=== PATIENT | female | born 1965 | race Caucasian/White ===

== ENCOUNTER 2016-09-19 21:13 | Emergency (ER) | payer OTHER ==
[~2016-09-19] VITALS: Ht 165.1 cm; Wt 94.9 kg
[~2016-09-19 21:13] MED LIST: ALBUAER19 INH; APRE1TAB3 PO; ASPEC81 PO; FLVHFA110 INH; PRAV10TA39 PO; RIZA10TA19 PO; TOPI50TA16 PO
[2016-09-19 21:20] VITALS: TEMP 36.9; Ht 165.1 cm; Wt 94.9 kg
[2016-09-19] MEDS ORDERED: METOCLOPRAMIDE HCL INJ 5 MG/ML 2 ML VIAL IV STA (21:33)
[2016-09-19] MEDS ORDERED: DiphenhydrAMINE HCL 50 MG/ML VIAL IV STA (21:33)
[2016-09-19] MEDS ORDERED: TPM/50 PO (21:36)
[2016-09-19] MEDS ORDERED: RIZA1TAB11 PO (21:36)
[2016-09-19] MEDS ORDERED: DEXAMETHASONE SOD INJ 10 MG/ML VIAL IV ONE (21:45)
[2016-09-19 22:18] LABS: BASO % 0.4 %; BASO ABS # 0.05 K/uL (0-0.2); COMPLETE YES; EOS % 1.6 %; IG% 0.3 %; LYMPH % 22.7 %; MEAN CELL VOLUME 93.5 fL (80-100); MEAN CORPUSCULAR HEMOGLOBIN 32.2 pg (25-34); MEAN CORPUSCULAR HGB CONC 34.5 g/dl (32-36); MEAN PLATELET VOLUME 9.7 fL (7.4-10.4); MONO % 3.9 %; NEUT % 71.1 %; PLATELET COUNT 258 K/uL (130-400); RED BLOOD COUNT 4.28 M/uL (4.2-5.4); WHITE BLOOD COUNT 12.77 K/uL (4.8-10.8)
[2016-09-19 22:41] LABS: BUN/CREATININE RATIO 12.7 (10-20); CALCIUM 9.5 mg/dl (8.5-10.1); CREATININE 1.1 mg/dl (0.60-1.20); POTASSIUM 3.3 mmol/L (3.5-5.1)
[2016-09-19] MEDS ORDERED: SODIUM CHLORIDE 0.9% 500ML 500 ML IV STA (22:43)
[2016-09-19] MEDS ORDERED: POTASSIUM CHLORIDE 10 MEQ TABCR PO STA (22:44)
[2016-09-19] MEDS ORDERED: OPTIRAY 320 IV PRN (22:45)
--- NOTE | 2016-09-19 23:54 | EMERGENCY ROOM VISIT NOTE ---
ED Visit Note First contact with patient: 21:27 Patient seen along with the physician assistant facility manager Sandra Alan. Patient currently feels much better after treatment for migraine, she is nonfocal neurologically, her abdominal exam is within normal limits; agree with workup and assessment Problem List Medical Problems: (1) CKD (chronic kidney disease) stage 3, GFR 30-59 ml/min Status: Chronic (2) COPD (chronic obstructive pulmonary disease) Status: Chronic (3) Enteritis Status: Resolved (4) GERD (gastroesophageal reflux disease) Status: Chronic (5) HTN (hypertension) Status: Chronic (6) Hyperlipemia Status: Chronic (7) Psoriasis Status: Chronic (8) Pulmonary nodule Status: Resolved Surgical Problems: (1) History of repair of right rotator cuff Status: Resolved Current/Historical Medications Scheduled Apremilast (Otezla), 30 MG PO BID Topiramate (Topamax), 50 MG PO BID Scheduled PRN Rizatriptan Benzoate (Rizatriptan Benzoate), 10 MG PO UD PRN for Migraine Allergies Coded Allergies: Codeine (Verified Adverse Reaction, Unknown, vomiting, 03/05/16) Vital Signs Date Time Temp Pulse Resp B/P Pulse Ox O2 Delivery O2 Flow Rate FiO2 09/19/16 23:25 83 18 110/84 93 Room Air 09/19/16 21:20 36.9 80 18 116/76 96 Room Air Laboratory Results 09/19/16 21:55 Red Blood Count 4.28, Mean Corpuscular Volume 93.5, Mean Corpuscular Hemoglobin 32.2, Mean Corpuscular Hemoglobin Concent 34.5, Mean Platelet Volume 9.7, Neutrophils (%) (Auto) 71.1, Lymphocytes (%) (Auto) 22.7, Monocytes (%) (Auto) 3.9, Eosinophils (%) (Auto) 1.6, Basophils (%) (Auto) 0.4, Neutrophils # (Auto) 9.08, Lymphocytes # (Auto) 2.90, Monocytes # (Auto) 0.50, Eosinophils # (Auto) 0.20, Basophils # (Auto) 0.05 09/19/16 21:55 Test 09/19/16 21:55 White Blood Count 12.77 K/uL (4.8-10.8) Red Blood Count 4.28 M/uL (4.2-5.4) Hemoglobin 13.8 g/dL (12.0-16.0) Hematocrit 40.0 % (37-47) Mean Corpuscular Volume 93.5 fL (80-100) Mean Corpuscular Hemoglobin 32.2 pg (25-34) Mean Corpuscular Hemoglobin Concent 34.5 g/dl (32-36) Platelet Count 258 K/uL (130-400) Mean Platelet Volume 9.7 fL (7.4-10.4) Neutrophils (%) (Auto) 71.1 % Lymphocytes (%) (Auto) 22.7 % Monocytes (%) (Auto) 3.9 % Eosinophils (%) (Auto) 1.6 % Basophils (%) (Auto) 0.4 % Neutrophils # (Auto) 9.08 K/uL (1.4-6.5) Lymphocytes # (Auto) 2.90 K/uL (1.2-3.4) Monocytes # (Auto) 0.50 K/uL (0.11-0.59) Eosinophils # (Auto) 0.20 K/uL (0-0.5) Basophils # (Auto) 0.05 K/uL (0-0.2) RDW Standard Deviation 47.9 fL (36.4-46.3) RDW Coefficient of Variation 14.1 % (11.5-14.5) Immature Granulocyte % (Auto) 0.3 % Immature Granulocyte # (Auto) 0.04 K/uL (0.00-0.02) Anion Gap 9.0 mmol/L (3-11) Est Creatinine Clear Calc Drug Dose 70.5 ml/min Estimated GFR () 68.3 Estimated GFR (Non- 58.9 BUN/Creatinine Ratio 12.7 (10-20) Calcium Level 9.5 mg/dl (8.5-10.1) Medications Administered Medications (Trade) Dose Ordered Sig/Marybeth Route Start Time Stop Time Status Last Admin Dose Admin Dexamethasone Sodium Phosphate (Decadron Inj) 10 mg NOW ONCE IV 09/19/16 21:45 09/19/16 21:46 DC 09/19/16 21:45 10 MG Diphenhydramine HCl (Benadryl Inj) 25 mg NOW STAT IV 09/19/16 21:33 09/19/16 21:35 DC 09/19/16 21:33 25 MG Metoclopramide HCl 10 mg 10 mg NOW STAT IV 09/19/16 21:33 09/19/16 21:35 DC 09/19/16 21:33 10 MG Sodium Chloride (Nss 500ml) 500 ml @ 999 mls/hr Q31M STAT IV 09/19/16 22:43 09/19/16 23:13 DC 09/19/16 23:25 999 MLS/HR Departure Information Impression Primary Impression: Migraine Additional Impressions: Colitis Hypokalemia Dispostion Home / Self-Care Condition GOOD Referrals Damian Clark M.D. Forms Call Back Authorization, HOME CARE DOCUMENTATION FORM, IMPORTANT VISIT INFORMATION Patient Instructions Headaches Migraines and Cluster, My [facility] Additional Instructions DO NOT drive, drink alcohol, operate machinery, or perform dangerous activities today. You were given medications in the ER that can affect your ability to safely function or operate a vehicle. Rest today in a quiet, peaceful, dark environment and get a full 8-10 hrs of sleep tonight. Avoid loud noises, smoke/smoking, alcohol, bright lights, stress, or physical exertion today to minimize the chance the headache may return. Continue current medications. Ibuprofen(Motrin, Advil) may be used for fever or pain. Use 600mg every six hours as needed. Take with food. Avoid using more than 2400mg in a 24 hour period. Do not use 2400mg per day for more than three consecutive days without physician direction. Prolonged inappropriate use can lead to stomach upset or ulcers. (AND/OR) Acetaminophen(Tylenol) may be used for fever or pain. Use 1000mg every six hours as needed. Avoid using more than 3000mg in a 24 hour period. Return to the ER for passing out, worsening headache, vision problems, neck stiffness/pain, fevers, vomiting, worsening of your condition, or as needed. Follow up with your primary physician and/or a neurologist in 2-3 days for a recheck of your current condition. Follow-up family care doctor or GI for further workup for mild colitis seeing on CT imaging tonight. If you still have diarrhea, then you should get checked for C. difficile. This is a stool test by the family care doctor. Problem Qualifiers
--- NOTE | 2016-09-20 00:08 | EMERGENCY ROOM VISIT NOTE ---
History First contact with patient: 21:27 Chief Complaint: ABDOMINAL PAIN Stated Complaint: STOMACH PAIN WITH MIGRANE Nursing Triage Summary: Abdominal and head pain. HX migraines. History of Present Illness The patient is a 51 year old female who presents to the Emergency Room with complaints of migraine and left lower quadrant abdominal pain for the past day who is been nauseous and having diarrhea who just finished a course of doxycycline for bronchitis by the family doctor. Patient has a history of migraines and symptoms feel similar. She describes the headache as throbbing, ranging in severity 7 out of 10 throughout the temporal region. Headache was slow in onset. Patient denies fevers, vomiting, neck stiffness, sore throat, earache, sinus pain or congestion, numbness, tingling, weakness, urinary symptoms, chest pain, dyspnea. No vision complaints. No colonoscopy in the past. No history diverticulitis or colitis. Review of Systems See HPI for pertinent positives & negatives. A total of 10 systems reviewed and were otherwise negative. Past Medical/Surgical History Medical Problems: (1) CKD (chronic kidney disease) stage 3, GFR 30-59 ml/min (2) COPD (chronic obstructive pulmonary disease) (3) Enteritis (4) GERD (gastroesophageal reflux disease) (5) HTN (hypertension) (6) Hyperlipemia (7) Psoriasis (8) Pulmonary nodule (9) Tobacco Use Disorder Surgical Problems: (1) History of repair of right rotator cuff Family History FH: heart disease Social History Smoking Status: Current Every Day Smoker Alcohol Use: occasionally Drug Use: none Marital Status: Occupation Status: employed Current/Historical Medications Scheduled Apremilast (Otezla), 30 MG PO BID Topiramate (Topamax), 50 MG PO BID Scheduled PRN Rizatriptan Benzoate (Rizatriptan Benzoate), 10 MG PO UD PRN for Migraine Allergies Coded Allergies: Codeine (Verified Adverse Reaction, Unknown, vomiting, 03/05/16) Physical Exam Vital Signs Date Time Temp Pulse Resp B/P Pulse Ox O2 Delivery O2 Flow Rate FiO2 09/19/16 23:25 83 18 110/84 93 Room Air 09/19/16 21:20 36.9 80 18 116/76 96 Room Air Physical Exam VITALS: Vitals are noted on the nurse's note and reviewed by myself. Vital signs stable. GENERAL: Pleasant female, in no acute distress, nondiaphoretic, well-developed well-nourished. SKIN: The skin was without rashes, erythema, edema, or bruising. There is no tenting of the skin. Capillary reflex less than 2 seconds. HEAD: Normocephalic atraumatic. EARS: External auditory canals clear, tympanic membranes pearly raza without erythema or effusion bilaterally. EYES: Pupils equal round and reactive to light and accommodation. Conjunctivae without injection, sclerae without icterus. Extraocular movements intact. NOSE: Patent, turbinates without inflammation or discharge. No sinus tenderness. MOUTH: Mucous membranes moist. Pharynx without erythema or exudate. Uvula midline. Airway patent. Tongue does not deviate. NECK: Supple without nuchal rigidity. No lymphadenopathy. No thyromegaly. Cervical spine is nontender. No JVD. No meningeal signs HEART: Regular rate and rhythm without murmurs gallops or rubs. LUNGS: Clear to auscultation bilaterally without wheezes, rales or rhonchi. No dullness to percussion. No retractions or accessory muscle use. ABDOMEN: Positive bowel sounds x 4. Normal tympanic percussion. Soft, tender to palpation left lower quadrant, no CVA tenderness, without masses or organomegaly. Burris sign negative. No guarding or rebound tenderness. MUSCULOSKELETAL: No muscle atrophy, erythema, or edema noted. NEURO: Patient was alert and oriented to person place and time. Normal sensation to light and sharp touch. No focal neurological deficits. Cranial nerves II-12 grossly intact. No pronator drift. Cerebellar exam intact. Medical Decision & Procedures Laboratory Results 09/19/16 21:55 Red Blood Count 4.28, Mean Corpuscular Volume 93.5, Mean Corpuscular Hemoglobin 32.2, Mean Corpuscular Hemoglobin Concent 34.5, Mean Platelet Volume 9.7, Neutrophils (%) (Auto) 71.1, Lymphocytes (%) (Auto) 22.7, Monocytes (%) (Auto) 3.9, Eosinophils (%) (Auto) 1.6, Basophils (%) (Auto) 0.4, Neutrophils # (Auto) 9.08, Lymphocytes # (Auto) 2.90, Monocytes # (Auto) 0.50, Eosinophils # (Auto) 0.20, Basophils # (Auto) 0.05 09/19/16 21:55 Test 09/19/16 21:55 White Blood Count 12.77 K/uL (4.8-10.8) Red Blood Count 4.28 M/uL (4.2-5.4) Hemoglobin 13.8 g/dL (12.0-16.0) Hematocrit 40.0 % (37-47) Mean Corpuscular Volume 93.5 fL (80-100) Mean Corpuscular Hemoglobin 32.2 pg (25-34) Mean Corpuscular Hemoglobin Concent 34.5 g/dl (32-36) Platelet Count 258 K/uL (130-400) Mean Platelet Volume 9.7 fL (7.4-10.4) Neutrophils (%) (Auto) 71.1 % Lymphocytes (%) (Auto) 22.7 % Monocytes (%) (Auto) 3.9 % Eosinophils (%) (Auto) 1.6 % Basophils (%) (Auto) 0.4 % Neutrophils # (Auto) 9.08 K/uL (1.4-6.5) Lymphocytes # (Auto) 2.90 K/uL (1.2-3.4) Monocytes # (Auto) 0.50 K/uL (0.11-0.59) Eosinophils # (Auto) 0.20 K/uL (0-0.5) Basophils # (Auto) 0.05 K/uL (0-0.2) RDW Standard Deviation 47.9 fL (36.4-46.3) RDW Coefficient of Variation 14.1 % (11.5-14.5) Immature Granulocyte % (Auto) 0.3 % Immature Granulocyte # (Auto) 0.04 K/uL (0.00-0.02) Anion Gap 9.0 mmol/L (3-11) Est Creatinine Clear Calc Drug Dose 70.5 ml/min Estimated GFR () 68.3 Estimated GFR (Non- 58.9 BUN/Creatinine Ratio 12.7 (10-20) Calcium Level 9.5 mg/dl (8.5-10.1) Medications Administered Medications (Trade) Dose Ordered Sig/Marybeth Route Start Time Stop Time Status Last Admin Dose Admin Dexamethasone Sodium Phosphate (Decadron Inj) 10 mg NOW ONCE IV 09/19/16 21:45 09/19/16 21:46 DC 09/19/16 21:45 10 MG Diphenhydramine HCl (Benadryl Inj) 25 mg NOW STAT IV 09/19/16 21:33 09/19/16 21:35 DC 09/19/16 21:33 25 MG Metoclopramide HCl 10 mg 10 mg NOW STAT IV 09/19/16 21:33 09/19/16 21:35 DC 09/19/16 21:33 10 MG Sodium Chloride (Nss 500ml) 500 ml @ 999 mls/hr Q31M STAT IV 09/19/16 22:43 09/19/16 23:13 DC 09/19/16 23:25 999 MLS/HR Potassium Chloride (Klor-Con M10) 20 meq NOW STAT PO 09/19/16 22:44 09/19/16 22:45 DC 09/20/16 00:00 20 MEQ ED Course Prior records/ancillary studies reviewed. Triage Nursing notes reviewed. Additional history obtained from family The patient's history was concerning for migraine and abdominal pain with nausea and diarrhea. Differential diagnosis: Etiologies such as acute intracranial bleed, CVA, postural headache, meningitis , encephalitis, mass or mass effect, sinusitis, infection, temporal arteritis, trigeminal neuralgia, pseudotumor cerebri, tension headache, cluster headache, carbon monoxide exposure, migraine, appendicitis, diverticulitis, PUD, biliary pathology, UTI, pancreatitis, obstruction, mesenteric ischemia, aortic pathology, infections, inflammatory bowel disease, renal colic, as well as others were entertained. Physical examination findings: As above. ER treatment provided: Decadron, Reglan, Benadryl, IV fluids On reassessment the patient felt better. Diagnostics interpreted by me: The labs revealed leukocytosis, hypokalemia and this is replaced orally Imaging studies: CT scan is concerning for mild colitis per radiology Exam and history seem consistent with migraine. Patient states she does not normally get abdominal pain with her migraines. Further imaging was then ordered as she had a leukocytosis and was tender in the left lower quadrant concerning for possible diverticulitis. CAT scan showed mild colitis. Patient felt much better to be medicated as above. She is advised follow-up family care in a few days or here in the ER sooner for abdominal pain, fevers, vomiting , headache, worsening signs or symptoms or as needed. Patient was neurovascularly and neurologically intact. She was well-appearing. She is tolerating fluids. By the evaluation outlined above emergent etiologies such as appendicitis, diverticulitis, PUD, biliary pathology, UTI, pancreatitis, obstruction, mesenteric ischemia, aortic pathology, infections, inflammatory bowel disease, renal colic, as well as others were deemed relatively unlikely. The pt informed about the findings as listed above. All questions were answered and pleased with the treatment. Return instructions were outlined and the patient was discharged in stable condition. Referral: The patient was referred back to their primary care physician for follow-up in 2 to 3 days for a recheck of the current condition. Case reviewed with my attending. Medical Decision As above Impression Primary Impression: Migraine Additional Impression: Colitis Departure Information Dispostion Home / Self-Care Condition GOOD Referrals Sarthak Baeza M.D. (PCP) Patient Instructions My [facility] Additional Instructions DO NOT drive, drink alcohol, operate machinery, or perform dangerous activities today. You were given medications in the ER that can affect your ability to safely function or operate a vehicle. Rest today in a quiet, peaceful, dark environment and get a full 8-10 hrs of sleep tonight. Avoid loud noises, smoke/smoking, alcohol, bright lights, stress, or physical exertion today to minimize the chance the headache may return. Continue current medications. Ibuprofen(Motrin, Advil) may be used for fever or pain. Use 600mg every six hours as needed. Take with food. Avoid using more than 2400mg in a 24 hour period. Do not use 2400mg per day for more than three consecutive days without physician direction. Prolonged inappropriate use can lead to stomach upset or ulcers. (AND/OR) Acetaminophen(Tylenol) may be used for fever or pain. Use 1000mg every six hours as needed. Avoid using more than 3000mg in a 24 hour period. Return to the ER for passing out, worsening headache, vision problems, neck stiffness/pain, fevers, vomiting, worsening of your condition, or as needed. Follow up with your primary physician and/or a neurologist in 2-3 days for a recheck of your current condition. Problem Qualifiers Primary Impression: Migraine Migraine type: without aura Status migrainosus presence: without status migrainosus Intractability: not intractable Qualified Codes: G43.009 - Migraine without aura, not intractable, without status migrainosus
[2016-09-20 00:21] VITALS: BP 139/87; PULSE 76; O2SAT 98
--- NOTE | 2016-09-20 07:29 | DIAGNOSTIC IMAGING REPORT ---
ABDOMEN AND PELVIS CT WITH IV CONTRAST CT DOSE: 687.12 mGy.cm HISTORY: Pain. Nausea. LLQ pain, ? diver tic TECHNIQUE: Multiaxial CT images of the abdomen and pelvis were performed following the use of intravenous contrast. COMPARISON STUDY: 08/10/2015 FINDINGS: Small parenchymal infiltrate of the lingula. Mild bibasilar atelectasis. Stable subpleural nodule left base laterally. Liver spleen and pancreas are unremarkable. Suggestion of slight degree of wall edema the colon. No evidence for abscess collection or obstruction area bladder is midline. No free fluid within the pelvic cul-de-sac. Kidneys negative for hydronephrosis IMPRESSION: Mild wall edema of the bulk of the colon suggesting a low-grade colitis. Study is otherwise negative. Electronically signed by: Carlin Rivera M.D. 09/20/2016 7:28 AM Dictated Date/Time: 09/20/2016 7:23 AM
== END 2016-09-20 00:22 | disposition home or self-care (01) ==
LOC: C.EDB 21:17 → C.EDA 09-20 00:22
DX: G43.009 Migraine without aura, not intractable, without status migrainosus (principal); K52.9 Noninfective gastroenteritis and colitis, unspecified; E87.6 Hypokalemia; N18.3 Chronic kidney disease, stage 3 (moderate); J44.9 Chronic obstructive pulmonary disease, unspecified; K21.9 Gastro-esophageal reflux disease without esophagitis; I12.9 Hypertensive chronic kidney disease with stage 1 through stage 4 chronic kidney disease, or unspecified chronic kidney disease; E78.5 Hyperlipidemia, unspecified; R91.1 Solitary pulmonary nodule; F17.210 Nicotine dependence, cigarettes, uncomplicated; Z82.49 Family history of ischemic heart disease and other diseases of the circulatory system; Z79.899 Other long term (current) drug therapy

== ENCOUNTER 2017-05-05 06:19 | Emergency (ER) | payer OTHER ==
[~2017-05-05] VITALS: Ht 165.1 cm; Wt 99.4 kg
[~2017-05-05 06:19] MED LIST changes: -ALBUAER19 INH; -ASPEC81 PO; -FLVHFA110 INH; -PRAV10TA39 PO; -RIZA10TA19 PO; +RIZA1TAB11 PO; -TOPI50TA16 PO; +TPM/50 PO
[2017-05-05 06:23] VITALS: TEMP 36.6; Ht 165.1 cm; Wt 99.4 kg
[2017-05-05] MEDS ORDERED: PROCHLORPERAZINE 5 MG/ML 2 ML VIAL IV STA (06:32)
--- NOTE | 2017-05-05 06:39 | EMERGENCY ROOM VISIT NOTE ---
History First contact with patient: 06:21 Chief Complaint: HEADACHE Stated Complaint: MIGRAINE History of Present Illness The patient is a 51 year old female who presents to the Emergency Room with complaints of headache since last night. She has a history of migraines, is on Topamax 50mg BID, and reports they occur during periods of stress in life. She reports she is currently stressed with her having end stage renal disease. She reports this headache is sharp, located behind both her eyes but worse on the left, 10/10 severity. It started last night gradually and has been constant. Nothing has made it better. She tried taking Imitrex around 10pm last night and it did not provide relief. She has associated loose stools which is normal for her when she gets a migraine. She denies any chest pain, shortness of breath, abdominal pain, visual changes, numbness or tingling in the arms or legs, or urinary symptoms. She denies any red flags. She denies fever, chills, or neck stiffness. She has no hx of malignancy or immunosuppression. This feels similar to her usual migraines. Source of History: patient Onset: last night Position: head, ear (left) Symptom Intensity: severe Quality: sharp, stabbing Timing: constant Modifying Factors (Worsening): other (being in bright rooms) Modifying Factors (Relieving): other (none) Associated Symptoms: + nausea, + vomiting, + diarrhea Review of Systems See HPI for pertinent positives & negatives. A total of 10 systems reviewed and were otherwise negative. Past Medical/Surgical History Medical Problems: (1) CKD (chronic kidney disease) stage 3, GFR 30-59 ml/min (2) COPD (chronic obstructive pulmonary disease) (3) Enteritis (4) GERD (gastroesophageal reflux disease) (5) HTN (hypertension) (6) Hyperlipemia (7) Psoriasis (8) Pulmonary nodule (9) Tobacco Use Disorder Surgical Problems: (1) History of repair of right rotator cuff Family History FH: heart disease Social History Smoking Status: Current Every Day Smoker Alcohol Use: occasionally Drug Use: none Marital Status: Occupation Status: employed Current/Historical Medications Scheduled Apremilast (Otezla), 30 MG PO BID Topiramate (Topamax), 50 MG PO BID Scheduled PRN Ondansetron Hcl (Zofran), 4 MG PO Q6H PRN for Nausea Rizatriptan Benzoate (Rizatriptan Benzoate), 10 MG PO UD PRN for Migraine Allergies Codeine Physical Exam Vital Signs Date Time Temp Pulse Resp B/P (MAP) Pulse Ox O2 Delivery O2 Flow Rate FiO2 05/05/17 06:23 36.6 68 18 135/83 95 Room Air Physical Exam GENERAL: Awake, alert, well-appearing, in mild distress. Curled onto side covering eyes. HENT: Normocephalic, atraumatic. Oropharynx unremarkable. EYES: Normal conjunctiva. Sclera non-icteric. NECK: Supple. No nuchal rigidity. FROM. No JVD. RESPIRATORY: Clear to auscultation. CARDIAC: Regular rate, normal rhythm. Extremities warm and well perfused. Pulses equal. ABDOMEN: Soft, non-distended. No tenderness to palpation. No rebound or guarding. No masses. MUSCULOSKELETAL: Chest examination reveals no tenderness. The back is symmetrical on inspection without obvious abnormality. LOWER EXTREMITIES: Calves are equal size bilaterally and non-tender. No edema. No discoloration. NEURO: Normal sensorium. No sensory or motor deficits noted. SKIN: No rash or jaundice noted. Medical Decision & Procedures Medications Administered Medications (Trade) Dose Ordered Sig/Marybeth Route Start Time Stop Time Status Last Admin Dose Admin Prochlorperazine Edisylate (Compazine Inj) 10 mg NOW STAT IV 05/05/17 06:32 05/05/17 06:38 DC 05/05/17 06:51 10 MG Sodium Chloride 500 ml @ 999 mls/hr Q31M IV 05/05/17 06:45 05/05/17 07:15 DC 05/05/17 06:51 999 MLS/HR Ketorolac Tromethamine (Toradol Inj) 30 mg NOW STAT IV 05/05/17 06:45 05/05/17 06:46 DC 05/05/17 06:52 30 MG ED Course 6:30AM: I obtained a history and performed a physical examination on the patient in room B4B. 6:35AM: I ordered a Saline lock, 10mg IV Compazine, and 500cc NSS IV. I discussed the case with Dr. Cleveland. I also then ordered a 30mg IV Toradol dose. 7:00AM: Dr. Cleveland evaluated the patient as well. 7:30AM: I checked on the patient again. She was feeling better. She had tolerated a PO challenge. She was eager to go home. 7:35AM: She was discharged home in good condition. Medical Decision 51 yo F who presents with severe headache. Differential includes: migraine, cluster headache, tension headache, dehydration, electrolyte abnormaliy, or meningitis. She reported this felt similar to her usual migraines. She did not have any red flags. She had no systemic symptoms, no secondary risk factors, no neurologic symptoms, the headache was gradual onset, she is <50 years old, and there has not been a pattern change with her headache. She had an IV placed and was given NSS IV, Toradol 30mg IV, and Compazine 10mg IV. When I checked on her again, she was feeling better. She had tolerated PO fluids and crackers. She was eager to go home. We discussed preventing worsening of her headache by remaining hydrated throughout the day. I prescribed 6 tablets of Zofran for nausea to take as needed. She was discharged home in good condition and advised to follow up with her PCP within the week. Blood Pressure Screening Patient's blood pressure: Normal blood pressure Impression Primary Impression: Headache Departure Information Dispostion Home / Self-Care Condition GOOD Prescriptions Ondansetron Hcl (ZOFRAN) 4 Mg Tab 4 MG PO Q6H Y for Nausea for 3 Days, #6 TAB Prov: Maria Fernanda Mccullough MD 05/05/17 Referrals Sarthak Baeza M.D. (PCP) Patient Instructions Headache Pain, My [facility]
[2017-05-05] MEDS ORDERED: KETOROLAC TROMETHAMINE 30 MG/ML VIAL IV STA (06:45)
[2017-05-05] MEDS ORDERED: SODIUM CHLORIDE 0.9% 500ML 500 ML IV SCH (06:45)
--- NOTE | 2017-05-05 07:06 | EMERGENCY ROOM VISIT NOTE ---
ED Visit Note First contact with patient: 06:21 Resident Physician Supervision Note: I interviewed and examined the patient. Discussed with Dr. Mccullough and agree with findings and plan as documented in the note. Any exceptions or clarifications are listed here: [None] Documented By: Allan Cleveland
[2017-05-05] MEDS ORDERED: ONDA4TAB46 PO (07:33)
[2017-05-05 07:38] VITALS: BP 124/74; PULSE 71; O2SAT 95
== END 2017-05-05 07:39 | disposition home or self-care (01) ==
LOC: C.EDB 06:19
DX: R51 Headache (principal); N18.3 Chronic kidney disease, stage 3 (moderate); J44.9 Chronic obstructive pulmonary disease, unspecified; K21.9 Gastro-esophageal reflux disease without esophagitis; I10 Essential (primary) hypertension; E78.5 Hyperlipidemia, unspecified; R91.1 Solitary pulmonary nodule; Z82.49 Family history of ischemic heart disease and other diseases of the circulatory system; F17.200 Nicotine dependence, unspecified, uncomplicated

== ENCOUNTER 2017-09-19 21:03 | Emergency (ER) | payer OTHER ==
[~2017-09-19] VITALS: Ht 165.1 cm; Wt 109.4 kg
[2017-09-19 21:11] VITALS: TEMP 36.6; Ht 165.1 cm; Wt 109.4 kg
[2017-09-19] MEDS ORDERED: OPTIRAY 320 IV PRN (22:45)
[2017-09-19 23:09] LABS: ISTAT CREATININE 0.9 mg/dl (0.6-1.3); ISTAT IONIZED CALCIUM 1.09 mmol/l (1.12-1.32)
[2017-09-19 23:11] LABS: BASO % 0.3 %; BASO ABS # 0.03 K/uL (0-0.2); EOS % 4.4 %; EOS ABS # 0.49 K/uL (0-0.5); HEMOGLOBIN 14.9 g/dL (12.0-16.0); IG# 0.11 K/uL (0.00-0.02); LYMPH % 27.1 %; LYMPH ABS # 3.03 K/uL (1.2-3.4); MEAN CELL VOLUME 92.5 fL (80-100); MEAN CORPUSCULAR HGB CONC 34.7 g/dl (32-36); MEAN PLATELET VOLUME 9.5 fL (7.4-10.4); MONO % 6.2 %; MONO ABS # 0.69 K/uL (0.11-0.59); NEUT ABS # 6.82 K/uL (1.4-6.5); PLATELET COUNT 275 K/uL (130-400); RED CELL DISTRIBUTION WIDTH CV 13.9 % (11.5-14.5); RED CELL DISTRIBUTION WIDTH SD 46.6 fL (36.4-46.3); WHITE BLOOD COUNT 11.17 K/uL (4.8-10.8)
[2017-09-19 23:30] LABS: ALBUMIN 3.4 gm/dl (3.4-5.0); ALT/SGPT 38 U/L (12-78); AST/SGOT 21 U/L (15-37); BLOOD UREA NITROGEN 17 mg/dl (7-18); CALCIUM 8.7 mg/dl (8.5-10.1); CARBON DIOXIDE 20 mmol/L (21-32); CREATININE 0.99 mg/dl (0.60-1.20); GLUCOSE 130 mg/dl (70-99); LIPASE 160 U/L (73-393); SODIUM 137 mmol/L (136-145)
[2017-09-19 23:33] LABS: ALKALINE PHOSPHATASE 82 U/L (45-117)
[2017-09-19] MEDS ORDERED: SODIUM CHLORIDE 0.9% 1000ML 1,000 ML IV STA (23:34)
[2017-09-19] MEDS ORDERED: ONDANSETRON INJ 2 MG/ML 2 ML VIAL IV STA (23:34)
[2017-09-19] MEDS ORDERED: MoRPHine SULFATE 10 MG/ML CARP/VIAL IV STA (23:34)
[2017-09-19] MEDS ORDERED: KETOROLAC TROMETHAMINE 30 MG/ML VIAL IV STA (23:34)
[2017-09-20] MEDS ORDERED: TAMS0.4C38 PO (00:12)
[2017-09-20] MEDS ORDERED: OXYC1TAB3 PO (00:12)
[2017-09-20] MEDS ORDERED: OXYCODONE IR HOME PACK PO ONE (00:15)
[2017-09-20 00:28] VITALS: BP 110/72; PULSE 70; O2SAT 97
--- NOTE | 2017-09-20 01:35 | EMERGENCY ROOM VISIT NOTE ---
History Report prepared by Adonay: Orion Garnett Under the Supervision of: Dr. Justice Chacon D.O. First contact with patient: 22:39 Chief Complaint: ABDOMINAL PAIN Stated Complaint: DIVERTICULITIS,ABD PAIN Nursing Triage Summary: Patient reports left abdominal pain that started yesterday. Patient has been on 2 antibiotics for Bronchitis and thought it was from that. Patient has hx diverticulitis. History of Present Illness The patient is a 52 year old female who presents to the Emergency Room with complaints of waxing and waning abdominal pain starting last night. She currently rates her discomfort as a 9/10 in severity, and she describes it as a sharp pain. She notes that the pain is going into her back. The patient states that her last bowel movements was two days ago. She notes that she has a history of diverticulitis, and she states that she has not had a cholecystectomy , appendectomy, or hysterectomy. The patient notes that she was recently on Augmentin for bronchitis, and she got diarrhea, so she was switched to azithromycin. She no longer has diarrhea. The patient denies any fevers, runny nose, and new cough. Source of History: patient Onset: last night Position: abdomen Symptom Intensity: 9/10 Quality: sharp Timing: waxes/wanes Associated Symptoms: + back pain, No fevers, No cough Review of Systems See HPI for pertinent positives & negatives. A total of 10 systems reviewed and were otherwise negative. Past Medical & Surgical Medical Problems: (1) CKD (chronic kidney disease) stage 3, GFR 30-59 ml/min (2) COPD (chronic obstructive pulmonary disease) (3) Enteritis (4) GERD (gastroesophageal reflux disease) (5) HTN (hypertension) (6) Hyperlipemia (7) Psoriasis (8) Pulmonary nodule (9) Tobacco Use Disorder Surgical Problems: (1) History of repair of right rotator cuff Family History FH: heart disease Social History Smoking Status: Never Smoker Alcohol Use: occasionally Drug Use: none Marital Status: Occupation Status: employed Current/Historical Medications Scheduled Apremilast (Otezla), 30 MG PO BID Tamsulosin Hcl (Flomax), 0.4 MG PO DAILY Topiramate (Topamax), 50 MG PO BID Scheduled PRN Oxycodone Immediate Rel Tab (Roxicodone Ir), 5 MG PO Q4H PRN for Severe Pain Rizatriptan Benzoate (Rizatriptan Benzoate), 10 MG PO UD PRN for Migraine Allergies Coded Allergies: Codeine (Verified Adverse Reaction, Unknown, vomiting, 03/05/16) Physical Exam Vital Signs Date Time Temp Pulse Resp B/P (MAP) Pulse Ox O2 Delivery O2 Flow Rate FiO2 09/20/17 00:28 70 18 110/72 97 09/19/17 23:35 78 18 108/66 95 Room Air 09/19/17 21:11 36.6 92 18 122/81 96 Room Air Physical Exam GENERAL: Sitting up in bed, holding her left lower quadrant. EYE EXAM: normal conjunctiva. OROPHARYNX: no exudate, no erythema, lips, buccal mucosa, and tongue normal and mucous membranes are moist NECK: supple, no nuchal rigidity, no adenopathy, non-tender LUNGS: Clear to auscultation. Normal chest wall mechanics HEART: no murmurs, S1 normal and S2 normal ABDOMEN: Minimal tenderness in the left mid abdomen tracking around to the left flank. Abdomen soft, normo-active bowel sounds, no masses, no rebound or guarding. BACK: Back is symmetrical on inspection and there is no deformity, no midline tenderness, no CVA tenderness. SKIN: no rashes and no bruising UPPER EXTREMITIES: upper extremities are grossly normal. LOWER EXTREMITIES: No pitting edema. NEURO EXAM: Normal sensorium, cranial nerves II-XII grossly intact, normal speech, no gross weakness of arms, no gross weakness of legs. Medical Decision & Procedures ER Provider Diagnostic Interpretation: Radiology results as stated below per my review and the radiologist's interpretation: CT ABDOMEN & PELVIS With Contrast: There are 2 subpleural nodules in the lateral left lower lobe measuring up to 1.1 cm which are nonspecific which are probably benign given stability. No bowel wall thickening or bowel obstruction. Appendix is identified. No left adnexal masses. No hydronephrosis or nephrolithiasis. Moderate atherosclerosis. Degenerative disc disease at L5-S1. Radiologist: Gabo Cheek MD Laboratory Results 09/19/17 22:49 Red Blood Count 4.65, Mean Corpuscular Volume 92.5, Mean Corpuscular Hemoglobin 32.0, Mean Corpuscular Hemoglobin Concent 34.7, Mean Platelet Volume 9.5, Neutrophils (%) (Auto) 61.0, Lymphocytes (%) (Auto) 27.1, Monocytes (%) (Auto) 6.2, Eosinophils (%) (Auto) 4.4, Basophils (%) (Auto) 0.3, Neutrophils # (Auto) 6.82, Lymphocytes # (Auto) 3.03, Monocytes # (Auto) 0.69, Eosinophils # (Auto) 0.49, Basophils # (Auto) 0.03 09/19/17 22:49 Test 09/19/17 22:40 09/19/17 22:49 09/19/17 22:56 09/19/17 23:07 Urine Test NEG (NEG) White Blood Count 11.17 K/uL (4.8-10.8) Red Blood Count 4.65 M/uL (4.2-5.4) Hemoglobin 14.9 g/dL (12.0-16.0) Hematocrit 43.0 % (37-47) Mean Corpuscular Volume 92.5 fL (80-100) Mean Corpuscular Hemoglobin 32.0 pg (25-34) Mean Corpuscular Hemoglobin Concent 34.7 g/dl (32-36) Platelet Count 275 K/uL (130-400) Mean Platelet Volume 9.5 fL (7.4-10.4) Neutrophils (%) (Auto) 61.0 % Lymphocytes (%) (Auto) 27.1 % Monocytes (%) (Auto) 6.2 % Eosinophils (%) (Auto) 4.4 % Basophils (%) (Auto) 0.3 % Neutrophils # (Auto) 6.82 K/uL (1.4-6.5) Lymphocytes # (Auto) 3.03 K/uL (1.2-3.4) Monocytes # (Auto) 0.69 K/uL (0.11-0.59) Eosinophils # (Auto) 0.49 K/uL (0-0.5) Basophils # (Auto) 0.03 K/uL (0-0.2) RDW Standard Deviation 46.6 fL (36.4-46.3) RDW Coefficient of Variation 13.9 % (11.5-14.5) Immature Granulocyte % (Auto) 1.0 % Immature Granulocyte # (Auto) 0.11 K/uL (0.00-0.02) Est Creatinine Clear Calc Drug Dose 83.7 ml/min Estimated GFR () 77.0 Estimated GFR (Non- 66.4 BUN/Creatinine Ratio 16.8 (10-20) Calcium Level 8.7 mg/dl (8.5-10.1) Total Bilirubin 0.4 mg/dl (0.2-1) Direct Bilirubin < 0.1 mg/dl (0-0.2) Aspartate Amino Transf (AST/SGOT) 21 U/L (15-37) Alanine Aminotransferase (ALT/SGPT) 38 U/L (12-78) Alkaline Phosphatase 82 U/L (45-117) Total Protein 7.0 gm/dl (6.4-8.2) Albumin 3.4 gm/dl (3.4-5.0) Lipase 160 U/L (73-393) Bedside Hemoglobin 14.3 g/dl (12.0-16.0) Bedside Hematocrit 42 % (37-47) Bedside Sodium 139 mEq/L (135-144) Bedside Potassium 4.0 mEq/L (3.3-5.0) Bedside Chloride 105 mEq/L (101-112) Bedside Total CO2 20 mEq/l (24-31) Anion Gap 18.0 mmol/L (16-25) Bedside Blood Urea Nitrogen 17 mg/dl (7-18) Bedside Creatinine 0.9 mg/dl (0.6-1.3) Bedside Glucose (other) 134 mg/dl (70-99) Bedside Ionized Calcium ([place]) 1.09 mmol/l (1.12-1.32) Urine Color YELLOW Urine Appearance CLEAR (CLEAR) Urine pH 5.5 (4.5-7.5) Urine Specific [place] 1.019 (1.000-1.030) Urine Protein NEG (NEG) Urine Glucose (UA) NEG (NEG) Urine Ketones NEG (NEG) Urine Occult Blood 2+ (NEG) Urine Nitrite NEG (NEG) Urine Bilirubin NEG (NEG) Urine Urobilinogen NEG (NEG) Urine Leukocyte Esterase SMALL (NEG) Urine WBC (Auto) 1-5 /hpf (0-5) Urine RBC (Auto) 10-30 /hpf (0-4) Urine Hyaline Casts (Auto) 1-5 /lpf (0-5) Urine Epithelial Cells (Auto) >30 /lpf (0-5) Urine Bacteria (Auto) NEG (NEG) Laboratory results per my review. Medications Administered Medications (Trade) Dose Ordered Sig/Marybeth Route Start Time Stop Time Status Last Admin Dose Admin Morphine Sulfate (MoRPHine SULFATE INJ) 6 mg NOW STAT IV 09/19/17 23:34 09/19/17 23:36 DC 09/19/17 23:44 6 MG Ketorolac Tromethamine (Toradol Inj) 30 mg NOW STAT IV 09/19/17 23:34 09/19/17 23:36 DC 09/19/17 23:44 30 MG Ondansetron HCl (Zofran Inj) 4 mg NOW STAT IV 09/19/17 23:34 09/19/17 23:36 DC 09/19/17 23:44 4 MG Sodium Chloride 1,000 ml @ 999 mls/hr Q1H1M STAT IV 09/19/17 23:34 09/20/17 00:34 DC 09/19/17 23:44 999 MLS/HR Oxycodone HCl (Roxicodone Immediate Rel 5MG Home Pack) 1 homepack UD ONCE PO 09/20/17 00:15 09/20/17 00:21 DC 09/20/17 00:25 1 HOMEPACK ED Course ED COURSE: Vital signs were reviewed and showed normal vitals The patients medical record was reviewed The above diagnostic studies were performed and reviewed. ED treatments and interventions as stated above. 2239: The patient was evaluated in room B5. A complete history and physical examination was performed. 2332: I talked to the radiologist, and the report is supposed to say "The appendix is not visualized." 2334: Sodium Chloride 1000 ml @ 999 mls/hr IV, Zofran 4mg IV, Toradol 30mg IV, Morphine Sulfate 6mg IV 0015: Oxycodone 1 Home Pack PO 0019: Upon reevaluation, the patient is doing well.I discussed my findings with the patient and she understands and agrees with the treatment plan. Based on the patients age, coexisting illnesses, exam and lab findings the decision to treat as an outpatient was made. The patient remained stable while under my care. The patient appeared well at the time of discharge. Medical Decision Differential diagnoses includes but is not limited to gastritis, peptic ulcer disease, GERD, gallbladder disease, pancreatitis, small bowel obstruction, acute coronary syndrome, pericarditis, ischemic bowel, irritable bowel disease, irritable bowel syndrome, appendicitis, diverticulitis, malignancy, hernia, urinary tract infection, torsion, /ectopic , perforation, trauma, infectious. Patient is a 52-year-old female that presents to ER for left mid to left lower quadrant abdominal pain which radiates through to her back. She notes the pain does radiate through to her back was very severe. CBC along with BMP, LFTs, bilirubin and lipase is unremarkable. was negative. CT was performed with IV contrast as is concern for diverticulitis. UA eventually resulted without infection but did show multiple red cells. CT showed no hydronephrosis or hydroureter. With the hematuria this still could be a stone although I would favor seeing some hydronephrosis or hydroureter. I would also expect to see the stone on CT although there was IV contrast. I explained at length that there is a chance that we could be missing a kidney stone with this IV CT of the abdomen and pelvis. I did discharge patient with OxyIR. And recommended following up with PCP in 24 hours. I also give her Flomax. Discussed with Pt concerning signs and symptoms to watch out for. Pt was instructed to follow up with their PCP and discussed with the patient their option to return to the ED at anytime for persistent or worsening symptoms. The appropriate anticipatory guidance and out-patient management, including indications for return to the emergency department, were explained at length to the patient and understood. Medication Reconcilliation Current Medication List: was personally reviewed by me Blood Pressure Screening Patient's blood pressure: Normal blood pressure Impression Primary Impression: Abdominal pain Scribe Attestation The scribe's documentation has been prepared under my direction and personally reviewed by me in its entirety. I confirm that the note above accurately reflects all work, treatment, procedures, and medical decision making performed by me. Departure Information Dispostion Home / Self-Care Prescriptions Tamsulosin Hcl (FLOMAX) 0.4 Mg Cap 0.4 MG PO DAILY, #10 CAP Prov: Justice Chacon, DO 09/20/17 Oxycodone Immediate Rel Tab (ROXICODONE IR) 5 Mg Tab 5 MG PO Q4H Y for Severe Pain, #14 TAB Prov: Justice Chacon, DO 09/20/17 Referrals Sarthak Baeza M.D. (PCP) Forms Call Back Authorization, HOME CARE DOCUMENTATION FORM, IMPORTANT VISIT INFORMATION Patient Instructions Abdominal Pain - [facility] Additional Instructions Please follow up with your primary care doctor with in the next 24 hours. Any worsening of your symptoms, please return to the ED immediately. This includes any fevers greater than 100.4, worsening pain, chest pain, shortness breath, persistent nausea, vomiting, unable to eat or drink, or any other concerning signs or symptoms from your standpoint. You were given medications during this visit that will inhibit your ability to drive, operate machinery and work. Please do NOT drive, operate machinery or work for the next 12hrs. You were also given a prescription for a narcotic. While taking this medication you should also not drive, operate machinery and or work. You have a small 1 cm pulmonary nodule which was read as benign by radiology. Please have this with your primary care doctor and they can review the images and results. Your urine does have a small amount of blood present in it. CT was performed with IV contrast which decreases the chances of seeing a kidney stone. This pain may likely be related to a kidney stone. Please take narcotics as prescribed. Any fevers above 100.4 you need to return immediately to the ER. Please have this followed up by her primary care doctor in 24 hours as well as the blood in her urine. Please make sure that you follow-up with your primary care doctor as stated above for repeat abdominal check within the next 24 hours. Please take Tylenol or Motrin as needed for pain in combination with the OXY IR. Please take Flomax as prescribed in case this is a renal stone this will help you pass it faster. Problem Qualifiers Primary Impression: Abdominal pain Abdominal location: unspecified location Qualified Codes: R10.9 - Unspecified abdominal pain
--- NOTE | 2017-09-20 07:44 | DIAGNOSTIC IMAGING REPORT ---
ABD/PELVIS IV CONTRAST ONLY CLINICAL HISTORY: 52 years-old Female presenting with lower abd pain. TECHNIQUE: Multidetector CT of the abdomen and pelvis was performed after the administration of intravenous contrast. IV contrast: 94 mL of Optiray 320. A dose lowering technique was used consistent with the principles of ALARA (as low as reasonably achievable). COMPARISON: 09/19/2016. CT DOSE (mGy.cm): The estimated cumulative dose is 833.17 mGy.cm. 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 Lung bases: Mosaic attenuation could suggest small airways disease. Patchy linear opacities likely atelectasis or scarring. 2 adjacent solid subpleural nodules in the lateral basal left lower lobe, the larger measuring 7 mm (series 3 image 42) and the smaller measuring 6 mm (series 3 image 38). These are unchanged from prior exam. Normal heart size. No pericardial or pleural effusion. Liver: Normal morphology. No liver lesion. Patent hepatic vasculature. Biliary: No intrahepatic or extrahepatic biliary ductal dilatation. Gallbladder decompressed. Pancreas: Normal. Spleen: Normal. Adrenal glands: Normal. Kidneys and ureters: Normal. No hydronephrosis. Bladder: Incompletely evaluated secondary to underdistention. Pelvic organs: Uterus and ovaries normal. Bowel: Normal appendix. No bowel obstruction. Stomach distended with ingested material. Peritoneal cavity: No free fluid or intraperitoneal gas. Lymph nodes: No enlarged lymph nodes in the abdomen or pelvis. Vasculature: Atherosclerosis of the normal caliber abdominal aorta. IVC patent. Abdominal wall: Normal. Musculoskeletal: Normal. IMPRESSION: 1. No acute intra-abdominal pathology. 2. Persistent mosaic attenuation at the lung bases suggest small airways disease. 3. Unchanged solid subpleural nodules in the left lower lobe measuring up to 7 mm. These have been stable since 2016, which suggests benignity. Electronically signed by: Frank Jin M.D. 09/20/2017 7:42 AM Dictated Date/Time: 09/20/2017 6:51 AM
== END 2017-09-20 00:29 | disposition home or self-care (01) ==
LOC: C.EDB 21:05
DX: R10.9 Unspecified abdominal pain (principal); I12.9 Hypertensive chronic kidney disease with stage 1 through stage 4 chronic kidney disease, or unspecified chronic kidney disease; N18.3 Chronic kidney disease, stage 3 (moderate); J44.9 Chronic obstructive pulmonary disease, unspecified; L40.9 Psoriasis, unspecified; Z88.6 Allergy status to analgesic agent; Z79.899 Other long term (current) drug therapy

== ENCOUNTER 2018-08-12 04:12 | Observation (INO) ==
[2018-08-12] MEDS ORDERED: MECLIZINE HCL 25 MG TAB PO STA (04:33)
[2018-08-12] MEDS ORDERED: SODIUM CHLORIDE 0.9% 1000ML 1,000 ML IV SCH (04:45)
[2018-08-12 05:01] LABS: Basophils # (auto) 0.06 K/uL (0-0.2); Basophils % (auto) 0.6 %; Eosinophils # (auto) 0.35 K/uL (0-0.5); Eosinophils % (auto) 3.7 %; Hematocrit (blood only) 41.1 % (37-47); Hemoglobin 14.2 g/dL (12.0-16.0); Immature Granulocytes # (auto) 0.06 K/uL (0.00-0.02); Immature Granulocytes % (auto) 0.6 %; Lymphocytes % (auto) 40.8 %; Mean Corpuscular Hgb Conc 34.5 g/dL (32-36); Mean Corpuscular Volume 93.2 fL (80-100); Mean Platelet Volume 9.3 fL (7.4-10.4); Monocytes # (auto) 0.64 K/uL (0.11-0.59); Monocytes % (auto) 6.7 %; Neutrophils # (auto) 4.54 K/uL (1.4-6.5); Neutrophils % (auto) 47.6 %; Platelet Count 315 K/uL (130-400); RDW Coefficient of Variation 13.8 % (11.5-14.5); RDW Standard Deviation 47.1 fL (36.4-46.3); Red Blood Count 4.41 M/uL (4.2-5.4); White Blood Count 9.55 K/uL (4.8-10.8)
--- NOTE | 2018-08-12 05:04 | Emergency Department Note ---
History of Present Illness General Chief complaint: Dizziness Stated complaint: DIZZY,LIGHT HEADED,FEELS LIKE GOING TO PASS OUT Time Seen by Provider: 08/12/18 04:22 History of Present Illness Maximum Pain Intensity: 5 This is a 53-year-old female with a past medical history significant for COPD, hypertension, hyperlipidemia, that presents to the emergency department via private vehicle with complaints of "dizzy, lightheaded, feels like going to pass out". 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 She notes that she had a very similar episode 2 weeks ago while using a different swimming pool cleaner at work. She notes since then she has had persistence of the chest pain. She does follow with cardiology. She notes a strong family history of cardiac ailments with her father having stents placed prior to age 50, and mother with pacemaker. Currently the discomfort is numerically rated as a 5/10. She describes the dizziness and headache as "feeling drunk". Home Medications Home Medications Medication Instructions Recorded Confirmed Type apremilast [Otezla] 30 mg PO BID 08/12/18 08/12/18 History cholecalciferol (vitamin D3) 1,000 unit PO DAILY 08/12/18 08/12/18 History [Vitamin D3] fenofibrate 160 mg PO DAILY 08/12/18 08/12/18 History rizatriptan 10 mg PO UD PRN 08/12/18 08/12/18 History topiramate 50 mg PO BID 08/12/18 08/12/18 History Allergies Allergy/AdvReac Type Severity Reaction Status Date / Time acetaminophen [From Tylenol] Allergy Confusion Verified 08/12/18 06:21 codeine AdvReac Unknown vomiting Verified 03/05/16 09:23 Past Med/Surg History Medical History Psoriasis (Chronic) COPD (chronic obstructive pulmonary disease) (Chronic) GERD (gastroesophageal reflux disease) (Chronic) CKD (chronic kidney disease) stage 3, GFR 30-59 ml/min (Chronic) HTN (hypertension) (Chronic) Hyperlipemia (Chronic) Surgical History History of repair of right rotator cuff (Resolved) Social History Feels Safe at Home: Yes Smoking Status: Current every day smoker Review of Systems A total of 10 systems reviewed and were otherwise negative Physical Exam Vital Signs Vital Signs - 24 hr 08/12/18 04:16 08/12/18 04:42 08/12/18 04:47 Temperature 36.6 C Temperature Source Oral Sepsis Recent Fever Within 48 Hours No Sepsis Action Taken by Nursing No Action Required Pulse Rate - Lying 78 Pulse Rate - Sitting 83 Pulse Rate - Standing 81 Pulse Rate 92 H 96 H Pulse Strength Normal Respiratory Rate 18 19 Respiratory Effort / Characteristics Non-Labored Spontaneous Respiratory Depth Normal Respiratory Pattern Regular Blood Pressure - Lying 132/87 Blood Pressure - Sitting 141/104 H Blood Pressure- Standing 134/86 Blood Pressure 159/95 H 134/86 Blood Pressure Mean 116 102 Blood Pressure Position Sitting Pulse Oximetry 97 Oxygen Delivery Method Room Air VITAL SIGNS - Vital signs and nursing notes were reviewed. Stable and afebrile. GENERAL -53-year-old female appearing her stated age who is in no acute distress. Communicates well with provider and answers questions appropriately. SKIN - Without rashes. No meningeal or petechial rash. HEAD - NC/AT. EYES - PERRL with EOMI bilaterally. Sclera anicteric. EARS - No deformities of external structures noted on gross examination bilaterally. There is evidence of serous otitis bilaterally without evidence of bulging TM, erythema or rupture. Canals are within normal limits bilaterally. NOSE - Midline and without cyanosis. No epistaxis or purulent drainage noted. MOUTH/OROPHARYNX - Without perioral cyanosis. Buccal mucosa pink and moist and without leukoplakia. Tongue midline with equal elevation of palate bilaterally. No tonsillar hypertrophy, erythema, or exudates noted. Fair dentition noted. NECK - Neck with FROM. Supple to palpation. No nuchal rigidity. LUNGS - Chest wall symmetric without accessory muscle use, intercostals retractions, or central cyanosis. Normal vesicular breath sounds CTA B/L. No wheezes, rales, or rhonchi appreciated. CARDIAC - RRR with S1/S2. No murmur, rubs, or gallops appreciated. ABDOMEN - Abdominal contour normal without pulsations or visible masses. BS normoactive all four quadrants. No tenderness, palpable masses, hepatosplenomegaly, or ascites noted. EXTREMITIES - No clubbing or peripheral cyanosis. +5/5 strength noted in UE/LE bilaterally. NEUROLOGIC - Cranial nerves II through XII grossly intact. Sensory intact to light touch throughout. PSYCH - A&O, and cooperates fully with examiner. Pt is very pleasant and interacts well with examiner. Course Administered Medications Discontinued Medications Sodium Chloride (Nss 1000ml) 1,000 mls @ 999 mls/hr IV .Q1H1M ROCK Stop: 08/12/18 05:45 Last Infusion: 08/12/18 05:55 Dose: 0 mls/hr Admin: 08/12/18 04:52 Dose: 999 mls/hr Meclizine HCl (Antivert) 25 mg PO NOW STA Stop: 08/12/18 04:34 Last Admin: 08/12/18 04:49 Dose: 25 mg Medical Decision Making Laboratory Data Result diagrams: 08/12/18 04:55 08/12/18 04:55 Lab Results 08/12/18 08/12/18 08/12/18 Range/Units 04:55 04:55 04:55 WBC 9.55 (4.8-10.8) K/uL RBC 4.41 (4.2-5.4) M/uL Hgb 14.2 (12.0-16.0) g/dL Hct 41.1 (37-47) % MCV 93.2 (80-100) fL MCH 32.2 (25-34) pg MCHC 34.5 (32-36) g/dL RDW Std Deviation 47.1 H (36.4-46.3) fL RDW Coeff of Chelo 13.8 (11.5-14.5) % Plt Count 315 (130-400) K/uL MPV 9.3 (7.4-10.4) fL Immature Gran % (Auto) 0.6 % Neut % (Auto) 47.6 % Lymph % (Auto) 40.8 % Ada % (Auto) 6.7 % Eos % (Auto) 3.7 % Baso % (Auto) 0.6 % Immature Gran # (Auto) 0.06 H (0.00-0.02) K/uL Neut # (Auto) 4.54 (1.4-6.5) K/uL Lymph # (Auto) 3.90 H (1.2-3.4) K/uL Ada # (Auto) 0.64 H (0.11-0.59) K/uL Eos # (Auto) 0.35 (0-0.5) K/uL Baso # (Auto) 0.06 (0-0.2) K/uL Sodium 137 (136-145) mmol/L Potassium 3.7 (3.5-5.1) mmol/L Chloride 108 H (98-107) mmol/L Carbon Dioxide 22 (21-32) mmol/L Anion Gap 7.0 (3-11) BUN 23 H (7-18) mg/dl Creatinine 1.64 H (0.6-1.2) mg/dl Est Cr Clr Drug Dosing 51.4 ml/min Est GFR ( Amer) 41.5 Est GFR (Non-Af Amer) 35.8 BUN/Creatinine Ratio 14.2 (10-20) Glucose 101 H (70-99) mg/dl Calcium 8.6 (8.5-10.1) mg/dl Magnesium 1.9 (1.8-2.4) mg/dl Total Bilirubin 0.2 (0.2-1) mg/dl AST 16 (15-37) U/L ALT 20 (12-78) U/L Alkaline Phosphatase 74 (45-117) U/L Troponin I < 0.015 (0-0.045) ng/ml Total Protein 7.3 (6.4-8.2) gm/dl Albumin 3.6 (3.4-5.0) gm/dl Globulin 3.7 (2.5-4.0) gm/dl Albumin/Globulin Ratio 1.0 (0.9-2) Lipase (73-393) U/L TSH 1.210 (0.300-4.500) uIu/ml Specimen Hemolysis Lyme Disease IgG Ab Negative (Negative) Lyme Disease IgM Ab Negative (Negative) 08/12/18 Range/Units 04:55 WBC (4.8-10.8) K/uL RBC (4.2-5.4) M/uL Hgb (12.0-16.0) g/dL Hct (37-47) % MCV (80-100) fL MCH (25-34) pg MCHC (32-36) g/dL RDW Std Deviation (36.4-46.3) fL RDW Coeff of Chelo (11.5-14.5) % Plt Count (130-400) K/uL MPV (7.4-10.4) fL Immature Gran % (Auto) % Neut % (Auto) % Lymph % (Auto) % Ada % (Auto) % Eos % (Auto) % Baso % (Auto) % Immature Gran # (Auto) (0.00-0.02) K/uL Neut # (Auto) (1.4-6.5) K/uL Lymph # (Auto) (1.2-3.4) K/uL Ada # (Auto) (0.11-0.59) K/uL Eos # (Auto) (0-0.5) K/uL Baso # (Auto) (0-0.2) K/uL Sodium (136-145) mmol/L Potassium (3.5-5.1) mmol/L Chloride (98-107) mmol/L Carbon Dioxide (21-32) mmol/L Anion Gap (3-11) BUN (7-18) mg/dl Creatinine (0.6-1.2) mg/dl Est Cr Clr Drug Dosing ml/min Est GFR ( Amer) Est GFR (Non-Af Amer) BUN/Creatinine Ratio (10-20) Glucose (70-99) mg/dl Calcium (8.5-10.1) mg/dl Magnesium (1.8-2.4) mg/dl Total Bilirubin (0.2-1) mg/dl AST (15-37) U/L ALT (12-78) U/L Alkaline Phosphatase (45-117) U/L Troponin I (0-0.045) ng/ml Total Protein (6.4-8.2) gm/dl Albumin (3.4-5.0) gm/dl Globulin (2.5-4.0) gm/dl Albumin/Globulin Ratio (0.9-2) Lipase 152 (73-393) U/L TSH (0.300-4.500) uIu/ml Specimen Hemolysis Lyme Disease IgG Ab (Negative) Lyme Disease IgM Ab (Negative) MDM Narrative Patient was seen and evaluated as above in room A10. Review was performed of nursing notes and vital signs. After obtaining a thorough history and physical examination the above work up was performed. She presents to us today with dizziness, lightheadedness, feeling as if she is going to pass out, and some chest discomfort. There is a significant family history for cardiac illness. A bedside EKG was performed and reveals normal sinus rhythm, rate of 84 bpm. No evidence of IN on this examination. CBC reveals no leukocytosis or significant anemia. Evidence of interval creatinine elevation at 1.64 and BUN at 23. Troponin negative. Lipase negative. TSH normal. Urinalysis does not reveal infection. Lyme testing negative. Given the patient's past medical history, strong family history, and presentation do believe that further evaluation and management is warranted in the inpatient setting. I also discussed with the attending physician. These recommendations were relayed to the patient. She was in agreement to stay. In the evaluation and treatment of this patient, the following differential diagnoses were considered: IN, ASC, Dysrhythmia, Angina, Mediastinitis, GERD, Esophagitis, PE, Pneumonia, Bronchitis, Costochondritis, Rib Fracture, Zoster. Impression & Plan Dizziness, Headache, Chest pressure, Lightheadedness Discharge Plan Visit Data Chief Complaint: Dizziness Stated Complaint: DIZZY,LIGHT HEADED,FEELS LIKE GOING TO PASS OUT ED Provider: Marizol Farnsworth ED Midlevel Provider: Alfonso Arriola Discharge Problem: Dizziness, Headache, Chest pressure, Lightheadedness Patient Disposition: Admitted As Inpatient Condition: Good Forms Stand Alone Forms: [facility], Important Visit Information Prescriptions Prescriptions: No Action rizatriptan 10 mg tablet,disintegrating 10 mg PO UD PRN (Reason: Migraine Headache) RF: 0 cholecalciferol (vitamin D3) [Vitamin D3] 1,000 unit Capsule 1,000 unit PO DAILY RF: 0 topiramate 50 mg tablet 50 mg PO BID RF: 0 fenofibrate 160 mg tablet 160 mg PO DAILY RF: 0 apremilast [Otezla] 30 mg tablet 30 mg PO BID RF: 0 Referrals Referrals: Sarthak Baeza MD [Primary Care Provider] -
[2018-08-12 05:47] LABS: Alanine Aminotransferase 20 U/L (12-78); Albumin Level 3.6 gm/dl (3.4-5.0); Alkaline Phosphatase 74 U/L (45-117); Aspartate Aminotransferase 16 U/L (15-37); BUN Creatinine Ratio 14.2 (10-20); Bilirubin,Total 0.2 mg/dl (0.2-1); Blood Urea Nitrogen 23 mg/dl (7-18); Calcium 8.6 mg/dl (8.5-10.1); Carbon Dioxide 22 mmol/L (21-32); Chloride 108 mmol/L (98-107); Creatinine Clr Calc Pharmacy 51.4 ml/min; Est GFR (African American) 41.5; Est GFR (Non-African American) 35.8; Globulin 3.7 gm/dl (2.5-4.0); Glucose 101 mg/dl (70-99); Magnesium 1.9 mg/dl (1.8-2.4); Potassium 3.7 mmol/L (3.5-5.1); Sodium 137 mmol/L (136-145); Total Protein 7.3 gm/dl (6.4-8.2); Troponin I < 0.015 ng/ml (0-0.045)
--- NOTE | 2018-08-12 05:53 | Emergency Department Note ---
ED Visit Note I saw this patient in conjunction with Alfonso Arriola PA-C. I am quite concerned about this patient's description of her symptoms given her history of tobacco abuse, obesity and strong family history of coronary artery disease at an early age. I suggested the patient reconsider her decision about staying in the hospital for further cardiac evaluation. .
[2018-08-12 06:03] LABS: Lyme Ab IgG w/WB Rflx Negative (Negative); Lyme Ab IgM w/WB Rflx Negative (Negative)
[2018-08-12] MEDS ORDERED: NITROGLYCERIN SL 0.4 MG/TAB TAB SL STA (06:44)
[2018-08-12] MEDS ORDERED: NITROGLYCERIN SL 0.4 MG/TAB TAB ONE (06:47)
[2018-08-12 06:54] LABS: Appearance Urine Clear (Clear); Bacteria Urine Automated Negative (Negative); Bilirubin Urine Negative (Negative); Color Urine Yellow; Glucose Urine UA Negative (Negative); Ketones Urine Negative (Negative); Leukocyte Esterase Urine Negative (Negative); Nitrite Urine Negative (Negative); Protein Urine Negative (Negative); Urobilinogen Urine Negative (Negative); WBC Urine Automated 0 /hpf (0-5); pH Urine 6.5 (4.5-7.5)
--- NOTE | 2018-08-12 07:00 | History & Physical Report ---
Date of Service August 12, 2018 Assessment & Plan (1) Chest pressure: w/ worsening exertional SOB Atypical chest pain Rule out lung pathology hx COPD as per records, ongoing tobacco abuse Dizziness likely BPPV Rule out orthostasis ARF abd pain hx TIA as per records hyperlipidemia as per records hx migraine OBS Medical telemetry CT chest, TTE RE S OB, right-sided chest discomfort CT abdomen pelvis RE abdominal pain N.p.o/sips for now until CT results known Further management pending workup results baseline UA, monitor creatinine response to IV fluids Symptomatic management of vertigo PT eval for Abbey maneuver Abbey maneuver if without improvement Nicotine patch as needed DVT prophylaxis. Heparin subcu if no bleed on imaging studies Full code History of Present Illness Chief Complaint: Dizziness, headache, right-sided chest "bubble" Primary Care Provider: Sarthak Baeza MD History obtained from patient and records. Medical history significant for COPD, ongoing tobacco abuse, TIA as per records , hyperlipidemia, migraine, GERD, skin cancer as per records. Recent confinement August 2015 for atypical chest pain. ACS ruled out with normal DSE. 2 weeks ago patient noted persistent right-sided upper chest discomfort "bubble -like" sensation along with exertional S OB worse than usual. No unusual cough symptoms. Different from reflux. At about the same time, patient noted intermittent dizziness symptoms described as lightheadedness, spinning, worse with head motion associated with generalized headache going to the neck different from migraine. No nausea, no emesis. No weakness in arms and legs. Denies recent head, neck trauma. Patient consulted ER this a.m. Noted achy abdominal discomfort during CAT scan procedure of the head. No relief of chest discomfort with nitroglycerin given at the ER. Patient noted headache after SL nitro administration. 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 Allergies Allergy/AdvReac Type Severity Reaction Status Date / Time nitroglycerin AdvReac Intermediate headache Verified 08/12/18 07:28 [From Nitrolingual] codeine AdvReac Unknown vomiting Verified 03/05/16 09:23 Home Medications Home Medications Medication Instructions Recorded Confirmed Type apremilast [Otezla] 30 mg PO BID 08/12/18 08/12/18 History cholecalciferol (vitamin D3) 1,000 unit PO DAILY 08/12/18 08/12/18 History [Vitamin D3] fenofibrate 160 mg PO DAILY 08/12/18 08/12/18 History rizatriptan 10 mg PO UD PRN 08/12/18 08/12/18 History topiramate 50 mg PO BID 08/12/18 08/12/18 History Past Med/Surg History Medical History Psoriasis (Chronic) COPD (chronic obstructive pulmonary disease) (Chronic) GERD (gastroesophageal reflux disease) (Chronic) CKD (chronic kidney disease) stage 3, GFR 30-59 ml/min (Chronic) HTN (hypertension) (Chronic) Hyperlipemia (Chronic) Surgical History History of repair of right rotator cuff (Resolved) Social History Current Living Situation: Spouse Other Information That Helps Us Care for You: No Feels Safe at Home: Yes Safety Concerns: Feels Safe At This Time Smoking Status: Current every day smoker Tobacco Type: cigarettes Cigarettes per Day: 10 Hx Alcohol Use: No Hx Substance Use: No Beliefs That Will Affect Care: None Preferred Language: Azeri Communication Ability: Effective Review of Systems As per HPI, all 10 systems reviewed, all other ROS negative Physical Exam 2 Vital Signs (Past 24 Hours): Last Vital Signs Temp 36.6 C 08/12/18 04:16 Pulse 96 H 08/12/18 04:47 Resp 19 08/12/18 04:47 BP 134/86 08/12/18 04:47 Pulse Ox 97 08/12/18 04:16 Physical Exam: GENERAL: Obese, slightly anxious, no respiratory distress SKIN: Normal color, warm HEENT: Bespectacled, pink palpebral conjunctivae, no ptosis, dry buccal mucosa NECK : Short neck , no tenderness CHEST : Decreased breath sounds , no tenderness HEART : RRR, no obvious murmurs ABDOMEN: Some distention, nontender EXTREMITIES : No LE swelling/tenderness, no other conspicuous deformities noted NEUROLOGIC : Coherent, no facial asymmetry, no other gross focality Results & Data Laboratory Results Laboratory Results WBC 9.55 K/uL (4.8-10.8) 08/12/18 04:55 RBC 4.41 M/uL (4.2-5.4) 08/12/18 04:55 Hgb 14.2 g/dL (12.0-16.0) 08/12/18 04:55 Hct 41.1 % (37-47) 08/12/18 04:55 MCV 93.2 fL (80-100) 08/12/18 04:55 MCH 32.2 pg (25-34) 08/12/18 04:55 MCHC 34.5 g/dL (32-36) 08/12/18 04:55 RDW Std Deviation 47.1 fL (36.4-46.3) H 08/12/18 04:55 RDW Coeff of Chelo 13.8 % (11.5-14.5) 08/12/18 04:55 Plt Count 315 K/uL (130-400) 08/12/18 04:55 MPV 9.3 fL (7.4-10.4) 08/12/18 04:55 Immature Gran % (Auto) 0.6 % 08/12/18 04:55 Neut % (Auto) 47.6 % 08/12/18 04:55 Lymph % (Auto) 40.8 % 08/12/18 04:55 [place] % (Auto) 6.7 % 08/12/18 04:55 Eos % (Auto) 3.7 % 08/12/18 04:55 Baso % (Auto) 0.6 % 08/12/18 04:55 Immature Gran # (Auto) 0.06 K/uL (0.00-0.02) H 08/12/18 04:55 Neut # (Auto) 4.54 K/uL (1.4-6.5) 08/12/18 04:55 Lymph # (Auto) 3.90 K/uL (1.2-3.4) H 08/12/18 04:55 [place] # (Auto) 0.64 K/uL (0.11-0.59) H 08/12/18 04:55 Eos # (Auto) 0.35 K/uL (0-0.5) 08/12/18 04:55 Baso # (Auto) 0.06 K/uL (0-0.2) 08/12/18 04:55 Sodium 137 mmol/L (136-145) 08/12/18 04:55 Potassium 3.7 mmol/L (3.5-5.1) 08/12/18 04:55 Chloride 108 mmol/L (98-107) H 08/12/18 04:55 Carbon Dioxide 22 mmol/L (21-32) 08/12/18 04:55 Anion Gap 7.0 (3-11) 08/12/18 04:55 BUN 23 mg/dl (7-18) H 08/12/18 04:55 Creatinine 1.64 mg/dl (0.6-1.2) H 08/12/18 04:55 Est Cr Clr Drug Dosing 51.4 ml/min 08/12/18 04:55 Est GFR ( Amer) 41.5 08/12/18 04:55 Est GFR (Non-Af Amer) 35.8 08/12/18 04:55 BUN/Creatinine Ratio 14.2 (10-20) 08/12/18 04:55 Glucose 101 mg/dl (70-99) H 08/12/18 04:55 Calcium 8.6 mg/dl (8.5-10.1) 08/12/18 04:55 Magnesium 1.9 mg/dl (1.8-2.4) 08/12/18 04:55 Total Bilirubin 0.2 mg/dl (0.2-1) 08/12/18 04:55 AST 16 U/L (15-37) 08/12/18 04:55 ALT 20 U/L (12-78) 08/12/18 04:55 Alkaline Phosphatase 74 U/L (45-117) 08/12/18 04:55 Troponin I < 0.015 ng/ml (0-0.045) 08/12/18 04:55 Total Protein 7.3 gm/dl (6.4-8.2) 08/12/18 04:55 Albumin 3.6 gm/dl (3.4-5.0) 08/12/18 04:55 Globulin 3.7 gm/dl (2.5-4.0) 08/12/18 04:55 Albumin/Globulin Ratio 1.0 (0.9-2) 08/12/18 04:55 Lipase 152 U/L (73-393) 08/12/18 04:55 TSH 1.210 uIu/ml (0.300-4.500) 08/12/18 04:55 Specimen Hemolysis 08/12/18 04:55 Urine Color Yellow 08/12/18 05:35 Urine Appearance Clear (Clear) 08/12/18 05:35 Urine pH 6.5 (4.5-7.5) 08/12/18 05:35 Ur Specific [place] 1.010 (1.000-1.030) 08/12/18 05:35 Urine Protein Negative (Negative) 08/12/18 05:35 Urine Glucose (UA) Negative (Negative) 08/12/18 05:35 Urine Ketones Negative (Negative) 08/12/18 05:35 Urine Blood Trace (Negative) H 08/12/18 05:35 Urine Nitrite Negative (Negative) 08/12/18 05:35 Urine Bilirubin Negative (Negative) 08/12/18 05:35 Urine Urobilinogen Negative (Negative) 08/12/18 05:35 Ur Leukocyte Esterase Negative (Negative) 08/12/18 05:35 Urine WBC (Auto) 0 /hpf (0-5) 08/12/18 05:35 Urine RBC (Auto) 0-4 /hpf (0-4) 08/12/18 05:35 U Hyaline Cast (Auto) 1-5 /lpf (0-5) 08/12/18 05:35 U Epithel Cells (Auto) 10-20 /lpf (0-5) H 08/12/18 05:35 Urine Bacteria (Auto) Negative (Negative) 08/12/18 05:35 Lyme Disease IgG Ab Negative (Negative) 08/12/18 04:55 Lyme Disease IgM Ab Negative (Negative) 08/12/18 04:55 d-dimer was negative Diagnostic Findings CT head initial read no acute pathology chest x-ray as per my interpretation atelectasis EKG as per my interpretation : Rate 85, NSR, no ischemia
[2018-08-12] MEDS ORDERED: ACETAMINOPHEN 325 MG TAB PO STA (07:07)
[2018-08-12] MEDS ORDERED: ACETAMINOPHEN 325 MG TAB ONE (07:07)
--- NOTE | 2018-08-12 07:07 | CT Scan Report ---
CT SCAN OF THE BRAIN WITHOUT IV CONTRAST CLINICAL HISTORY: Dizziness. COMPARISON STUDY: CT of the brain dated 03/05/2016. TECHNIQUE: Unenhanced axial CT scan of the brain is performed from the vertex to the skull base. A d ose lowering technique was utilized adhering to the principles of ALARA. CT DOSE: 537.48 mGy.cm FINDINGS: Brain parenchyma: The brain parenchyma is normal in appearance. There is no hemorrhage, mass effect, or evidence of acute territorial ischemia by CT criteria. Lawrence-white matter differentiation is preser poli. No extra-axial fluid collection is seen. Ventricles, sulci, cisterns: Normal in configuration. Intracranial vasculature: There are minimal secretions within the right sphenoid sinus. The remaining visualized intracranial vasculature at the skull base is normal in appearance. Calvarium: Unremarkable. Sinuses and mastoids: The visualized paranasal sinuses are clear. The mastoid air cells are well pneu matized. Orbits: The bony orbits are grossly intact. IMPRESSION: There is no hemorrhage, mass effect, or evidence of acute territorial ischemia by CT forrest flores. Electronically signed by: Erich Martinez M.D. 08/12/2018 7:06 AM
[2018-08-12] MEDS ORDERED: MECLIZINE 12.5 MG TAB PO STA (07:11)
--- NOTE | 2018-08-12 07:19 | XRay Report ---
SINGLE VIEW CHEST CLINICAL HISTORY: Dizziness. FINDINGS: An AP, portable, upright chest radiograph is compared to study dated 08/10/2015. The examinat ion is degraded by portable technique and patient rotation. The cardiomediastinal silhouette is unre markable. There are bibasilar airspace opacities. No large pleural effusion or pneumothorax is seen. The bony thorax is grossly intact. IMPRESSION: There are bibasilar airspace opacities. This could represent atelectasis versus an infect ious/inflammatory pneumonitis. Clinical correlation will be required. Electronically signed by: Erich Martinez M.D. 08/12/2018 7:18 AM
[2018-08-12 07:26] LABS: Partial Thromboplastin Ratio 1.1; Partial Thromboplastin Time 29.8 Seconds (21.0-31.0)
[2018-08-12] MEDS ORDERED: NSS + 20MEQ KCL 20 MEQ/1,000 ML BAG IV SCH (08:35)
[2018-08-12] MEDS ORDERED: LORazepam 0.25 MG/0.5 ML VIAL IV PRN (08:35)
[2018-08-12] MEDS ORDERED: PROCHLORPERAZINE 5 MG in SYRINGE 4 ML IV PRN (08:35)
[2018-08-12] MEDS ORDERED: TRAMADOL HCL 50 MG TABLET PO PRN ×2 (08:35→09:14)
[2018-08-12] MEDS ORDERED: HYDROmorphone INJ 0.5 MG/0.5 ML SYR IV PRN (08:35)
[2018-08-12] MEDS ORDERED: ACETAMINOPHEN 325 MG TAB PO PRN (08:35)
[2018-08-12] MEDS ORDERED: MECLIZINE 12.5 MG TAB PO PRN (08:35)
--- NOTE | 2018-08-12 08:43 | CT Scan Report ---
CT SCAN OF THE ABDOMEN AND PELVIS WITHOUT IV CONTRAST CLINICAL HISTORY: Generalized abdominal pain. COMPARISON STUDY: Abdominal ultrasound dated 08/10/2015. Abdominal CT scans dated 08/10/2015 and 09/20/19 18. TECHNIQUE: CT scan of the abdomen and pelvis is performed from the lung bases to the proximal femora. Images are reviewed in the axial, sagittal, and coronal planes. IV contrast was not administered for this examination as per the referring clinician. Note that the examination was performed in signific antly suboptimal fashion without oral and IV contrast. A dose lowering technique was utilized adherin g to the principles of ALARA. CT DOSE: 1652.52 mGy.cm FINDINGS: Lung bases: The heart is normal in size and without pericardial effusion. A 1.5 cm pleural-based nodu lar density is seen in the left lower lobe on image #8. Air trapping and atelectasis are present at b oth lung bases. No airspace consolidation or pleural effusion is identified. See report of today's [facility] CT for detailed thoracic findings. Liver: The unenhanced liver is normal in size, contour, and attenuation. There is no intrahepatic juana iary ductal dilatation. Gallbladder: Unremarkable. Spleen: Normal in size and attenuation. Pancreas: Unremarkable. Adrenal glands: A 1.5 cm right adrenal nodule meets CT criteria for a fat-containing adenoma. The lef t adrenal gland is normal in appearance. Kidneys: The unenhanced kidneys demonstrate cortical atrophy and are without hydronephrosis. There ar e no renal calculi identified. There is no evidence of contour deforming renal mass lesion. Abdominal vasculature: The abdominal aorta is normal in course and caliber noting moderate to advance d atherosclerotic calcification. Bowel: There is colonic fecal retention. No bowel obstruction is identified. The appendix is normal as visualized. Peritoneum: There is no intraperitoneal free air or abdominal ascites. Lymphadenopathy: None. Pelvic viscera: The bladder, uterus, and adnexa are normal as visualized. Skeletal structures: No lytic or blastic lesions are seen. IMPRESSION: 1. Significantly suboptimal examination without oral and IV contrast. 2. There are no acute infectious or inflammatory findings in the abdomen or pelvis. 3. Additional findings as above. Electronically signed by: Erich Martinez M.D. 08/12/2018 8:41 AM
--- NOTE | 2018-08-12 08:48 | CT Scan Report ---
CT OF THE CHEST WITHOUT IV CONTRAST CLINICAL HISTORY: Right-sided chest discomfort. Shortness of breath. COMPARISON STUDY: Chest radiograph August 10, 2015 and August 12, 2018. TECHNIQUE: Axial images of the chest were obtained without IV contrast. Images were reviewed in the axial, sagittal, and coronal planes. IV contrast was not administered for this examination. Automat ed exposure control was utilized for the study. A dose lowering technique was utilized adhering to t he principles of ALARA. FINDINGS: No enlarged axillary, mediastinal or hilar lymph nodes are present. The size of the heart is normal. There is no pericardial effusion. There is no pneumothorax or pleural effusion. The centra l airways are patent. There are groundglass opacities with mosaic attenuation within the lungs. These are more evident within the lower lobes. There is mild interlobular septal thickening. Scattered sub pleural opacities favor atelectasis. A few nodular opacities within the right lower lobe measure up t o 7 mm as shown on image 145 of 276. This favors atelectasis. Two subpleural nodules within the left lower lobe are noted on image 172. The larger nodule measures 1.3 cm. This has minimally increased in size since abdominal CT of August 10, 2015. This is probably benign. No suspicious osseous lesions are noted. The abdomen and pelvis will be reported separately. There is mild paraseptal emphysema. IMPRESSION: 1. Mild ground glass opacities with mosaic attenuation within the lungs. The findings favor air winnie ing. Mild pulmonary edema could appear similar although is considered less likely. 2. Two subpleural left lower lobe nodules. The larger nodule has minimally increased in size since CT of August 10, 2015. Relative stability favors a benign etiology. However, a follow-up chest CT in 6 months to ensure stability is recommended. 3. Mild paraseptal emphysema. Electronically signed by: Don Johnson M.D. 08/12/2018 8:46 AM
[2018-08-12 09:02] LABS: Prothrombin Time 10.3 Seconds (9.0-12.0)
[2018-08-12] MEDS ORDERED: TRAMADOL HCL 50 MG TABLET PO STA (09:12)
[2018-08-12] MEDS: FENOFIBRATE~ORDER AWAITING ACTION SCH ×3 (09:56→23:29)
[2018-08-12] MEDS: TOPIRAMATE 50 MG TAB PO SCH ×2 (10:37→21:22)
[2018-08-12] MEDS: SODIUM CHLORIDE 0.9% 1000ML 1,000 ML IV SCH ×2 (10:37→21:17)
--- NOTE | 2018-08-12 13:45 | Magnetic Resonance Report ---
MR brain wo con CLINICAL HISTORY: 53 years-old Female presenting with near syncope, headache, dizziness, lightheadedn ess. TECHNIQUE: Multisequence, multiplanar MR imaging of the brain was performed without the use of intrav enous contrast. IV contrast: None. COMPARISON: Noncontrast CT head from earlier today. FINDINGS: Localizer images: Unremarkable. Ventricles and sulci normal in size. Few scattered foci of T2/FLAIR hyperintensity in the subcortical white matter likely age-related change. Postcontrast imaging was not performed. No mass effect or midline shift. No restricted diffusion to suggest acute ischemia. No hemorrhage. No extra-axial fluid collection. T2 skull base flow voids preserved. Bone marrow signal intensity within the calvarium within normal l imits. Trace mucosal thickening in the right sphenoid sinus. Trace fluid in the mastoid air cells, le ft greater than right. IMPRESSION: 1. No acute intracranial abnormality. 2. Mastoid air cell fluid, left greater than right. Electronically signed by: Frank Jin M.D. 08/12/2018 1:44 PM
[2018-08-12] MEDS: HEPARIN SOD 5,000 UNIT/0.5 ML VIAL SQ SCH ×2 (13:53→21:23)
--- NOTE | 2018-08-12 14:09 | Neurology Consultation ---
Date of Consultation August 12, 2018 Assessment & Plan (1) Headache: 1. history of migraine headache 2. likely over use headache - increased # motrin to 1 bottles every 2 days 3. MRI with no acute findings 4. may need sleep study as out patient 5. smoking cessation recommended 6. recommend solumedrol 250 mg q 6 hour toradol 30 mg IV q 8h x 5 dose compazine 10 mg q 8 hours magnesium 1 g q 8 hours return neurology 4-6 weeks after discharge Fanny Matias PAC schedule Supervising Physician Co-Signing Physician Notes I have seen and discussed above patient with Dr Giorgi Lomeli. Patient seen this afternoon on rounds. I agree with Fanny Matias, PAc-C as noted below. Ms. Mesa is a 53 year old woman with chronic migraine headache and MOH. Admitted with status migrainosis x2 weeks. I did discuss risk of MOH and poor prognosis while using frequent OTC medications like daily Ibuprofen. She states she is on Topamax 50 mg BID for headache prophylaxis. Has tried several abortives including Imtrex 6 mg SC and Maxalt 10 mg ODT. Chronic migraine is best treated a outpatient as there is no certainly no quick fix to her current headache cycle. May benefit from addition of Elavil 25 mg daily as outpatient for headache prophylaxis or consideration of Botox. While she admitted I would recommend scheduling a migraine cocktail as follows: IVF 125 cc hr, Toradol 30 mg IV Q8 hr, Mag 1 g IV Q 8hr, Compazine 10 mg IV Q8hr , Benadryl 25 mg Iv Q8hr and Solumedrol 250 mg IV Q6hr. History of Present Illness Reason for Consultation: persistant headache Requesting Physician: Wicho Higgins MD Attending Physician: Wicho Higgins MD History of Present Illness Luis A is a 53 year old female with PMH- COPD, ongoing tobacco abuse, hyperlipidemia, migraine, GERD. She had a persistent right-sided upper chest discomfort "bubble-like" sensation along with exertional SOB worse than usual. No unusual cough symptoms. She also noted intermittent dizziness symptoms described as lightheadedness, spinning, worse with head motion associated with generalized headache going to the neck different from migraine. She had seen Dr Herrera years ago and was only prescribed imitrex which she no longer uses. She saw her PCP after the visit and was started on Topamax which she currently is taking 50 mg daily.She has never been tried on another medication. She uses a bottle of motrin every 2 days. She states she works 2 shift at [employer] and its the only way she can keep working. She is a 1/2 ppd smoker, caffeine 1 can per day, otherwise water. She takes no other drugs and is an occasional EtOH user. She has been getting lightheaded which she usually sits down and it stops. deneis current CP, SOB, abdominal pain, N, V, vision changes, swallowing issues, falls. Allergies Allergy/AdvReac Type Severity Reaction Status Date / Time nitroglycerin AdvReac Intermediate headache Verified 08/12/18 07:28 [From Nitrolingual] codeine AdvReac Unknown vomiting Verified 03/05/16 09:23 Home Medications Home Medications Medication Instructions Recorded Confirmed Type apremilast [Otezla] 30 mg PO BID 08/12/18 08/12/18 History cholecalciferol (vitamin D3) 1,000 unit PO DAILY 08/12/18 08/12/18 History [Vitamin D3] fenofibrate 160 mg PO DAILY 08/12/18 08/12/18 History rizatriptan 10 mg PO UD PRN 08/12/18 08/12/18 History topiramate 50 mg PO BID 08/12/18 08/12/18 History Patient History Medical History Psoriasis (Chronic) COPD (chronic obstructive pulmonary disease) (Chronic) GERD (gastroesophageal reflux disease) (Chronic) CKD (chronic kidney disease) stage 3, GFR 30-59 ml/min (Chronic) HTN (hypertension) (Chronic) Hyperlipemia (Chronic) Surgical History History of repair of right rotator cuff (Resolved) Social History Current Living Situation: Spouse Other Information That Helps Us Care for You: No Feels Safe at Home: Yes Safety Concerns: Feels Safe At This Time Smoking Status: Current every day smoker Tobacco Type: cigarettes Cigarettes per Day: 10 Hx Alcohol Use: No Hx Substance Use: No Beliefs That Will Affect Care: None Preferred Language: [place] Zealander Communication Ability: Effective Physical Exam 2 Vital Signs (Past 24 Hours): Last Vital Signs Temp 36.9 C 08/12/18 12:00 Pulse 73 08/12/18 12:00 Resp 18 08/12/18 12:00 BP 114/66 08/12/18 12:00 Pulse Ox 92 08/12/18 12:00 Physical Exam: Constitutional: appearance over-nourished Ears, Nose, Mouth and Throat: mucous membranes moist, no injection and skin normal, eyes normal Cardiovascular: normal S-1 and S-2 and regular rate and rhythm Respiratory: course breath sounds Musculoskeletal: no peripheral edema and good distal pulses Skin: no stigmata of neurocutaneous disease noted and normal and intact Eyes: extraocular muscles intact (EOMI) and pupils equal, round and reactive to light (PERRL) NEUROLOGIC EXAMINATION: Mental status: Alert and interactive Oriented to full date and location Oriented to person Speech fluent with no evidence of aphasia Cranial Nerves smile eye brow raise symmetric Reflexes: Deep tendon reflexes were symmetrical and graded 2/5. Plantar responses were flexor. Sensory: intact to light and cool touch Coordination: Romberg absent Gait/Stance: Posture normal. sitting up in bed. Motor: Negative for pronator drift of out stretched arms with eyes closed. 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 Mastoid air cell fluid, left greater than right. _ (1) Headache Headache chronicity pattern: Headache type: Intractability:
--- NOTE | 2018-08-12 17:19 | Cardiology Consultation ---
Date of Consultation August 12, 2018 Assessment & Plan (1) Dizziness: I do not believe this is related to arrhythmia. This may be more likely related to her chronic headaches and analgesic abuse. While symptoms of dizziness and presyncope can certainly be related to an arrhythmia, she reported having continued symptoms while being evaluated in the emergency room. Telemetry from the emergency room revealed normal sinus rhythm. I think the likelihood that this is arrhythmic in etiology is low. However, if there is continued concern regarding arrhythmia a 30-day outpatient event monitor could be performed. (2) Chest pressure: Her chest pressure is atypical. It seems that her symptoms lasted at least a half an hour if not longer. She did not have any elevation in her cardiac biomarkers as a result. I do not believe this represents any form of acute coronary syndrome or cardiac process. Echocardiogram was normal. She does not have exertional symptoms of chest discomfort. I would not advocate any additional cardiac testing for this particular symptom. History of Present Illness Reason for Consultation: Chest pain, Dizziness Requesting Physician: Nelly Attending Physician: Wicho Higgins MD History of Present Illness The patient is a 53-year-old woman without a known history of cardiac disease who has been experiencing episodes of chest discomfort. These episodes occurred twice over the past 2 weeks. They seem to occur without any specific provocation and occur at rest. She describes a sensation as a pressure or a "bubble" in the right upper chest area. It is more uncomfortable with certain positions and with deep breathing. It seems resolved without any specific intervention but can last for at least a half an hour to an hour. Yesterday evening she experienced this discomfort in association with significant dizziness and headache. She presented to [facility] for an evaluation. She states that she continued to have symptoms of dizziness and lightheadedness while being evaluated at [facility]. The symptoms gradually resolved over the course of the evening In general she is an active individual who performs moderate exertion for work. She states she does not have limiting dyspnea or dyspnea with most activities. She does not report any exertional chest discomfort. She states that she did pass out once while she was many years ago, but otherwise has not experienced syncope. He states that these dizzy spells have occurred twice and feel presyncopal in nature. Allergies Allergy/AdvReac Type Severity Reaction Status Date / Time nitroglycerin AdvReac Intermediate headache Verified 08/12/18 07:28 [From Nitrolingual] codeine AdvReac Unknown vomiting Verified 03/05/16 09:23 Home Medications Home Medications Medication Instructions Recorded Confirmed Type apremilast [Otezla] 30 mg PO BID 08/12/18 08/12/18 History cholecalciferol (vitamin D3) 1,000 unit PO DAILY 08/12/18 08/12/18 History [Vitamin D3] fenofibrate 160 mg PO DAILY 08/12/18 08/12/18 History rizatriptan 10 mg PO UD PRN 08/12/18 08/12/18 History topiramate 50 mg PO BID 08/12/18 08/12/18 History Patient History Medical History Psoriasis (Chronic) COPD (chronic obstructive pulmonary disease) (Chronic) GERD (gastroesophageal reflux disease) (Chronic) CKD (chronic kidney disease) stage 3, GFR 30-59 ml/min (Chronic) HTN (hypertension) (Chronic) Hyperlipemia (Chronic) Surgical History History of repair of right rotator cuff (Resolved) Social History Current Living Situation: Spouse Other Information That Helps Us Care for You: No Feels Safe at Home: Yes Safety Concerns: Feels Safe At This Time Smoking Status: Current every day smoker Tobacco Type: cigarettes Cigarettes per Day: 10 Hx Alcohol Use: No Hx Substance Use: No Beliefs That Will Affect Care: None Preferred Language: Vietnamese Communication Ability: Effective Review of Systems Complete. Pertinent positives none history of present illness. She reports daily headaches. She uses quite a bit of analgesics both Tylenol and ibuprofen. She has some sleep disturbance due to working nights. She does not report orthopnea or paroxysmal nocturnal dyspnea. She does report a sense of palpitation on occasion which she alleviates by eating sugar. Physical Exam 2 Vital Signs (Past 24 Hours): Last Vital Signs Temp 36.6 C 08/12/18 15:49 Pulse 75 08/12/18 15:49 Resp 18 08/12/18 15:49 BP 103/57 L 08/12/18 15:49 Pulse Ox 96 08/12/18 15:49 Physical Exam: She is alert and oriented x3. Mood affect appear normal. She answered all questions appropriately. HEENT: Sclerae are anicteric. Pupils are equal and reactive to light and accommodation. Extraocular movements were intact. Neuro: Cranial nerves intact Neck: Examination of the submandibular region did not reveal any significant lymphadenopathy. Carotids are palpable bilaterally and free of bruits on auscultation. There was no evidence of jugular venous distention. The thyroid was not enlarged. Lungs: Lungs are clear to auscultation bilaterally. There are no rales wheezes or rhonchi. She has normal respiratory effort without use of accessory muscles. There is normal pulmonary excursion. Cardiac: The rhythm was regular. S1 and S2 were normal. There are no murmurs on examination. The PMI was not markedly displaced on palpation. Abdomen: The abdomen was soft and nontender. Extremities: Patient has bilateral radial pulses that are equal in intensity. There is no evidence cyanosis or clubbing. There was no evidence of significant peripheral edema bilaterally. Skin: There are no rashes noted on examination today. Results & Data Laboratory Results Abnormal Lab Results 08/12/18 08/12/18 08/12/18 04:55 04:55 04:55 WBC 9.55 RBC 4.41 Hgb 14.2 Hct 41.1 MCV 93.2 MCH 32.2 MCHC 34.5 RDW Std Deviation 47.1 H RDW Coeff of [place] 13.8 Plt Count 315 MPV 9.3 Immature Gran % (Auto) 0.6 Neut % (Auto) 47.6 Lymph % (Auto) 40.8 [place] % (Auto) 6.7 Eos % (Auto) 3.7 Baso % (Auto) 0.6 Immature Gran # (Auto) 0.06 H Neut # (Auto) 4.54 Lymph # (Auto) 3.90 H [place] # (Auto) 0.64 H Eos # (Auto) 0.35 Baso # (Auto) 0.06 PT INR APTT PTT Ratio D-Dimer Sodium 137 Potassium 3.7 Chloride 108 H Carbon Dioxide 22 Anion Gap 7.0 BUN 23 H Creatinine 1.64 H Est Cr Clr Drug Dosing 51.4 Est GFR ( Amer) 41.5 Est GFR (Non-Af Amer) 35.8 BUN/Creatinine Ratio 14.2 Glucose 101 H Calcium 8.6 Magnesium 1.9 Total Bilirubin 0.2 AST 16 ALT 20 Alkaline Phosphatase 74 Troponin I < 0.015 Total Protein 7.3 Albumin 3.6 Globulin 3.7 Albumin/Globulin Ratio 1.0 Lipase TSH 1.210 Specimen Hemolysis Urine Color Urine Appearance Urine pH Ur Specific [place] Urine Protein Urine Glucose (UA) Urine Ketones Urine Blood Urine Nitrite Urine Bilirubin Urine Urobilinogen Ur Leukocyte Esterase Urine WBC (Auto) Urine RBC (Auto) U Hyaline Cast (Auto) U Epithel Cells (Auto) Urine Bacteria (Auto) Lyme Disease IgG Ab Negative Lyme Disease IgM Ab Negative 08/12/18 08/12/18 08/12/18 04:55 05:35 06:34 WBC RBC Hgb Hct MCV MCH MCHC RDW Std Deviation RDW Coeff of [place] Plt Count MPV Immature Gran % (Auto) Neut % (Auto) Lymph % (Auto) [place] % (Auto) Eos % (Auto) Baso % (Auto) Immature Gran # (Auto) Neut # (Auto) Lymph # (Auto) [place] # (Auto) Eos # (Auto) Baso # (Auto) PT INR APTT 29.8 PTT Ratio 1.1 D-Dimer 240 Sodium Potassium Chloride Carbon Dioxide Anion Gap BUN Creatinine Est Cr Clr Drug Dosing Est GFR ( Amer) Est GFR (Non-Af Amer) BUN/Creatinine Ratio Glucose Calcium Magnesium Total Bilirubin AST ALT Alkaline Phosphatase Troponin I Total Protein Albumin Globulin Albumin/Globulin Ratio Lipase 152 TSH Specimen Hemolysis Urine Color Yellow Urine Appearance Clear Urine pH 6.5 Ur Specific [place] 1.010 Urine Protein Negative Urine Glucose (UA) Negative Urine Ketones Negative Urine Blood Trace H Urine Nitrite Negative Urine Bilirubin Negative Urine Urobilinogen Negative Ur Leukocyte Esterase Negative Urine WBC (Auto) 0 Urine RBC (Auto) 0-4 U Hyaline Cast (Auto) 1-5 U Epithel Cells (Auto) 10-20 H Urine Bacteria (Auto) Negative Lyme Disease IgG Ab Lyme Disease IgM Ab 08/12/18 08/12/18 08/12/18 06:34 06:34 10:53 WBC RBC Hgb Hct MCV MCH MCHC RDW Std Deviation RDW Coeff of [place] Plt Count MPV Immature Gran % (Auto) Neut % (Auto) Lymph % (Auto) [place] % (Auto) Eos % (Auto) Baso % (Auto) Immature Gran # (Auto) Neut # (Auto) Lymph # (Auto) [place] # (Auto) Eos # (Auto) Baso # (Auto) PT 10.3 INR 1.0 APTT PTT Ratio D-Dimer Cancelled Sodium Potassium Chloride Carbon Dioxide Anion Gap BUN Creatinine Est Cr Clr Drug Dosing Est GFR ( Amer) Est GFR (Non-Af Amer) BUN/Creatinine Ratio Glucose Calcium Magnesium Total Bilirubin AST ALT Alkaline Phosphatase Troponin I < 0.015 Total Protein Albumin Globulin Albumin/Globulin Ratio Lipase TSH Specimen Hemolysis Urine Color Urine Appearance Urine pH Ur Specific [place] Urine Protein Urine Glucose (UA) Urine Ketones Urine Blood Urine Nitrite Urine Bilirubin Urine Urobilinogen Ur Leukocyte Esterase Urine WBC (Auto) Urine RBC (Auto) U Hyaline Cast (Auto) U Epithel Cells (Auto) Urine Bacteria (Auto) Lyme Disease IgG Ab Lyme Disease IgM Ab Diagnostic Findings Head CT, chest CT and abdominal CT did not reveal any acute process MRI of the head did not reveal any acute process Echocardiogram performed today revealed preserved LV systolic function without valvular heart disease ECG Additional Comments: Normal sinus rhythm. Telemetry did not reveal any arrhythmia
[2018-08-12] MEDS ORDERED: methylPREDNISolone 250 MG in SYRINGE 0 ML IV SCH (18:15)
--- NOTE | 2018-08-12 18:20 | Hospitalist Progress Note ---
Date of Service August 12, 2018 Assessment & Plan (1) Near syncope: etiology: r/o Arrhythmia monitor in tele r/o CVA check brain MRI r/o Orthostasis check Ortho VS IV NSS (2) Chest pain: echo ordered serial troponins ordered Cardiology consulted d dimer negative (3) Acute renal failure: likely from NSAIDs check FE Na IV NSS for now monitor crea (4) Headache: History of Migraine Neurology consulted, recommended Solumedrol, Mg, etc. 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 reports 2 week history of right sided headache reports "bubble" sensation on the right chest on exam, not in distress no other symptoms Physical Exam 2 Vital Signs (Past 24 Hours): Last Vital Signs Temp 36.6 C 08/12/18 15:49 Pulse 75 08/12/18 15:49 Resp 18 08/12/18 15:49 BP 103/57 L 08/12/18 15:49 Pulse Ox 96 08/12/18 15:49 Physical Exam: General- oriented x 3, not in distress, speaks in sentences with no effort or accessory muscle use Eyes- anicteric Neck- no JVD Lungs- clear breath sounds bilaterally, no rales/wheezes Heart- normal rate, regular rhythm; no murmurs Abdomen- normal bowel sounds, nondistended, soft, nontender Extremities- no pretibial edema, no calf tenderness Neuro- alert, oriented x 3; no gross focal neurologic deficits Skin- warm & dry Results & Data Laboratory Results Laboratory Results - last 24 hr 08/12/18 08/12/18 08/12/18 04:55 04:55 04:55 WBC 9.55 RBC 4.41 Hgb 14.2 Hct 41.1 MCV 93.2 MCH 32.2 MCHC 34.5 RDW Std Deviation 47.1 H RDW Coeff of [place] 13.8 Plt Count 315 MPV 9.3 Immature Gran % (Auto) 0.6 Neut % (Auto) 47.6 Lymph % (Auto) 40.8 [place] % (Auto) 6.7 Eos % (Auto) 3.7 Baso % (Auto) 0.6 Immature Gran # (Auto) 0.06 H Neut # (Auto) 4.54 Lymph # (Auto) 3.90 H [place] # (Auto) 0.64 H Eos # (Auto) 0.35 Baso # (Auto) 0.06 PT INR APTT PTT Ratio D-Dimer Sodium 137 Potassium 3.7 Chloride 108 H Carbon Dioxide 22 Anion Gap 7.0 BUN 23 H Creatinine 1.64 H Est Cr Clr Drug Dosing 51.4 Est GFR ( Amer) 41.5 Est GFR (Non-Af Amer) 35.8 BUN/Creatinine Ratio 14.2 Glucose 101 H Calcium 8.6 Magnesium 1.9 Total Bilirubin 0.2 AST 16 ALT 20 Alkaline Phosphatase 74 Troponin I < 0.015 Total Protein 7.3 Albumin 3.6 Globulin 3.7 Albumin/Globulin Ratio 1.0 Lipase TSH 1.210 Specimen Hemolysis Urine Color Urine Appearance Urine pH Ur Specific [place] Urine Protein Urine Glucose (UA) Urine Ketones Urine Blood Urine Nitrite Urine Bilirubin Urine Urobilinogen Ur Leukocyte Esterase Urine WBC (Auto) Urine RBC (Auto) U Hyaline Cast (Auto) U Epithel Cells (Auto) Urine Bacteria (Auto) Lyme Disease IgG Ab Negative Lyme Disease IgM Ab Negative 08/12/18 08/12/18 08/12/18 04:55 05:35 06:34 WBC RBC Hgb Hct MCV MCH MCHC RDW Std Deviation RDW Coeff of [place] Plt Count MPV Immature Gran % (Auto) Neut % (Auto) Lymph % (Auto) [place] % (Auto) Eos % (Auto) Baso % (Auto) Immature Gran # (Auto) Neut # (Auto) Lymph # (Auto) [place] # (Auto) Eos # (Auto) Baso # (Auto) PT INR APTT 29.8 PTT Ratio 1.1 D-Dimer 240 Sodium Potassium Chloride Carbon Dioxide Anion Gap BUN Creatinine Est Cr Clr Drug Dosing Est GFR ( Amer) Est GFR (Non-Af Amer) BUN/Creatinine Ratio Glucose Calcium Magnesium Total Bilirubin AST ALT Alkaline Phosphatase Troponin I Total Protein Albumin Globulin Albumin/Globulin Ratio Lipase 152 TSH Specimen Hemolysis Urine Color Yellow Urine Appearance Clear Urine pH 6.5 Ur Specific [place] 1.010 Urine Protein Negative Urine Glucose (UA) Negative Urine Ketones Negative Urine Blood Trace H Urine Nitrite Negative Urine Bilirubin Negative Urine Urobilinogen Negative Ur Leukocyte Esterase Negative Urine WBC (Auto) 0 Urine RBC (Auto) 0-4 U Hyaline Cast (Auto) 1-5 U Epithel Cells (Auto) 10-20 H Urine Bacteria (Auto) Negative Lyme Disease IgG Ab Lyme Disease IgM Ab 08/12/18 08/12/18 08/12/18 06:34 06:34 10:53 WBC RBC Hgb Hct MCV MCH MCHC RDW Std Deviation RDW Coeff of [place] Plt Count MPV Immature Gran % (Auto) Neut % (Auto) Lymph % (Auto) [place] % (Auto) Eos % (Auto) Baso % (Auto) Immature Gran # (Auto) Neut # (Auto) Lymph # (Auto) [place] # (Auto) Eos # (Auto) Baso # (Auto) PT 10.3 INR 1.0 APTT PTT Ratio D-Dimer Cancelled Sodium Potassium Chloride Carbon Dioxide Anion Gap BUN Creatinine Est Cr Clr Drug Dosing Est GFR ( Amer) Est GFR (Non-Af Amer) BUN/Creatinine Ratio Glucose Calcium Magnesium Total Bilirubin AST ALT Alkaline Phosphatase Troponin I < 0.015 Total Protein Albumin Globulin Albumin/Globulin Ratio Lipase TSH Specimen Hemolysis Urine Color Urine Appearance Urine pH Ur Specific [place] Urine Protein Urine Glucose (UA) Urine Ketones Urine Blood Urine Nitrite Urine Bilirubin Urine Urobilinogen Ur Leukocyte Esterase Urine WBC (Auto) Urine RBC (Auto) U Hyaline Cast (Auto) U Epithel Cells (Auto) Urine Bacteria (Auto) Lyme Disease IgG Ab Lyme Disease IgM Ab 08/12/18 17:07 WBC RBC Hgb Hct MCV MCH MCHC RDW Std Deviation RDW Coeff of [place] Plt Count MPV Immature Gran % (Auto) Neut % (Auto) Lymph % (Auto) [place] % (Auto) Eos % (Auto) Baso % (Auto) Immature Gran # (Auto) Neut # (Auto) Lymph # (Auto) [place] # (Auto) Eos # (Auto) Baso # (Auto) PT INR APTT PTT Ratio D-Dimer Sodium Potassium Chloride Carbon Dioxide Anion Gap BUN Creatinine Est Cr Clr Drug Dosing Est GFR ( Amer) Est GFR (Non-Af Amer) BUN/Creatinine Ratio Glucose Calcium Magnesium Total Bilirubin AST ALT Alkaline Phosphatase Troponin I < 0.015 Total Protein Albumin Globulin Albumin/Globulin Ratio Lipase TSH Specimen Hemolysis Urine Color Urine Appearance Urine pH Ur Specific [place] Urine Protein Urine Glucose (UA) Urine Ketones Urine Blood Urine Nitrite Urine Bilirubin Urine Urobilinogen Ur Leukocyte Esterase Urine WBC (Auto) Urine RBC (Auto) U Hyaline Cast (Auto) U Epithel Cells (Auto) Urine Bacteria (Auto) Lyme Disease IgG Ab Lyme Disease IgM Ab
[2018-08-12] MEDS: DiphenhydrAMINE HCL 50 MG/ML VIAL IV SCH (18:58)
[2018-08-12] MEDS: PROCHLORPERAZINE 10 MG in SYRINGE 8 ML IV SCH (19:00)
[2018-08-12] MEDS: PANTOprazole 40 MG in SYRINGE 0 ML IV SCH (19:00)
[2018-08-12] MEDS: MAGNESIUM SULFATE / D5W 1 GM/100 ML BAG IV SCH (19:01)
[2018-08-12] MEDS: methylPREDNISolone 250 MG in DEXTROSE 5% 100 ML IV SCH (21:17)
[2018-08-13] MEDS: methylPREDNISolone 250 MG in DEXTROSE 5% 100 ML IV SCH ×2 (01:18→08:13)
[2018-08-13] MEDS: PROCHLORPERAZINE 10 MG in SYRINGE 8 ML IV SCH (01:19)
[2018-08-13] MEDS: DiphenhydrAMINE HCL 50 MG/ML VIAL IV SCH ×2 (01:20→11:47)
[2018-08-13] MEDS: MAGNESIUM SULFATE / D5W 1 GM/100 ML BAG IV SCH ×2 (02:48→11:48)
[2018-08-13] MEDS: HEPARIN SOD 5,000 UNIT/0.5 ML VIAL SQ SCH ×2 (05:48→14:24)
[2018-08-13 05:50] LABS: Basophils # (auto) 0.01 K/uL (0-0.2); Basophils % (auto) 0.2 %; Eosinophils # (auto) 0.01 K/uL (0-0.5); Eosinophils % (auto) 0.2 %; Hematocrit (blood only) 43.5 % (37-47); Hemoglobin 14.7 g/dL (12.0-16.0); Immature Granulocytes # (auto) 0.06 K/uL (0.00-0.02); Lymphocytes # (auto) 0.91 K/uL (1.2-3.4); Lymphocytes % (auto) 15.2 %; Mean Corpuscular Hgb Conc 33.8 g/dL (32-36); Mean Corpuscular Volume 92.8 fL (80-100); Mean Platelet Volume 9.7 fL (7.4-10.4); Monocytes # (auto) 0.03 K/uL (0.11-0.59); Monocytes % (auto) 0.5 %; Neutrophils # (auto) 4.95 K/uL (1.4-6.5); Neutrophils % (auto) 82.9 %; Platelet Count 295 K/uL (130-400); RDW Standard Deviation 47.2 fL (36.4-46.3); Red Blood Count 4.69 M/uL (4.2-5.4); White Blood Count 5.97 K/uL (4.8-10.8)
[2018-08-13 06:24] LABS: BUN Creatinine Ratio 12.8 (10-20); Calcium 8.7 mg/dl (8.5-10.1); Creatinine Clr Calc Pharmacy 57.3 ml/min; Est GFR (African American) 47.4; Est GFR (Non-African American) 40.9; Potassium 3.7 mmol/L (3.5-5.1)
[2018-08-13] MEDS: TOPIRAMATE 50 MG TAB PO SCH (08:09)
[2018-08-13] MEDS: SODIUM CHLORIDE 0.9% 1000ML 1,000 ML IV SCH (08:13)
[2018-08-13] MEDS: FENOFIBRATE~ORDER AWAITING ACTION SCH (08:13)
[2018-08-13] MEDS: PANTOprazole 40 MG in SYRINGE 0 ML IV SCH (11:56)
[2018-08-13] MEDS ORDERED: DEXTROSE 50% 50 ML SYRINGE IV PRN (13:28)
[2018-08-13] MEDS ORDERED: GLUCOSE 40% GEL 15 GM TUBE PO PRN (13:28)
[2018-08-13] MEDS ORDERED: GLUCOSE 10 TABS/TUBE PO PRN (13:28)
[2018-08-13] MEDS ORDERED: CARBOHYDRATES FOR HYPOGLYCEMIA PO PRN (13:28)
[2018-08-13] MEDS ORDERED: GLUCAGON FOR INJ 1 MG VIAL SQ PRN (13:28)
--- NOTE | 2018-08-13 14:24 | Discharge Summary ---
Date of Service August 13, 2018 Admission HPI Per Admitting Provider History obtained from patient and records. Medical history significant for COPD, ongoing tobacco abuse, TIA as per records , hyperlipidemia, migraine, GERD, skin cancer as per records. Recent confinement August 2015 for atypical chest pain. ACS ruled out with normal DSE. 2 weeks ago patient noted persistent right-sided upper chest discomfort "bubble -like" sensation along with exertional S OB worse than usual. No unusual cough symptoms. Different from reflux. At about the same time, patient noted intermittent dizziness symptoms described as lightheadedness, spinning, worse with head motion associated with generalized headache going to the neck different from migraine. No nausea, no emesis. No weakness in arms and legs. Denies recent head, neck trauma. Patient consulted ER this a.m. Noted achy abdominal discomfort during CAT scan procedure of the head. No relief of chest discomfort with nitroglycerin given at the ER. Patient noted headache after SL nitro administration. 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 Admission Exam Per Admitting Provider Vital Signs (Past 24 Hours): Last Vital Signs Temp 36.6 C 08/12/18 04:16 Pulse 96 H 08/12/18 04:47 Resp 08/12/18 04:47 BP 134/86 08/12/18 04:47 Pulse Ox 97 08/12/18 04:16 Physical Exam: GENERAL: Obese, slightly anxious, no respiratory distress SKIN: Normal color, warm HEENT: Bespectacled, pink palpebral conjunctivae, no ptosis, dry buccal mucosa NECK : Short neck , no tenderness CHEST : Decreased breath sounds , no tenderness HEART : RRR, no obvious murmurs ABDOMEN: Some distention, nontender EXTREMITIES : No LE swelling/tenderness, no other conspicuous deformities noted NEUROLOGIC : Coherent, no facial asymmetry, no other gross focality Principal Diagnosis NEAR SYNCOPE Discharge Exam Vital Signs (Past 24 Hours): Last Vital Signs Temp 36.7 C 08/13/18 14:29 Pulse 84 08/13/18 14:29 Resp 18 08/13/18 14:29 BP 129/74 08/13/18 14:29 Pulse Ox 92 08/13/18 14:29 Physical Exam: General- oriented x 3, not in distress, speaks in sentences with no effort or accessory muscle use Eyes- anicteric Neck- no JVD Lungs- clear breath sounds bilaterally no crackles, no wheezing Heart- normal rate, regular rhythm; no murmurs Abdomen- normal bowel sounds, nondistended, soft, nontender Extremities- no pretibial edema, no calf tenderness Neuro- alert, oriented x 3; no gross focal neurologic deficits Skin- warm & dry Discharge Data Allergies Allergy/AdvReac Type Severity Reaction Status Date / Time nitroglycerin AdvReac Intermediate headache Verified 08/12/18 07:28 [From Nitrolingual] codeine AdvReac Unknown vomiting Verified 03/05/16 09:23 Consultations 08/12/18 06:13 ED Decision to Admit Stat 08/12/18 09:12 Consult Cardiology Routine Consult Neurology Routine Ordered Studies CXR: SINGLE VIEW CHEST CLINICAL HISTORY: Dizziness. FINDINGS: An AP, portable, upright chest radiograph is compared to study dated . The examination is degraded by portable technique and patient rotation. The cardiomediastinal silhouette is unremarkable. There are bibasilar airspace opacities. No large pleural effusion or pneumothorax is seen. The bony thorax is grossly intact. IMPRESSION: There are bibasilar airspace opacities. This could represent atelectasis versus an infectious/inflammatory pneumonitis. Clinical correlation will be required. 08/12/18 04:33 CT head/brain wo con Urgent IMPRESSION: There is no hemorrhage, mass effect, or evidence of acute territorial ischemia by CT criteria. 08/12/18 07:28 CT abd pelvis wo con Urgent CT chest wo con Urgent 08/12/18 09:14 MR brain wo con Stat Hospital Course (1) Near syncope: possibly from dehydration, NSAID overuse r/o Arrhythmia monitored in tele, no arrythmias noted Cardiology consulted Dr. Monroy if there is continued concern regarding arrhythmia a 30-day outpatient event monitor could be performed. CVA ruled out MRI brain: negative for acute process Orthostasis BP stable dizziness resolved, ambulating with no problems (2) Chest pain: echo EF 65-70% no significant valvular disease serial troponins negative d dimer negative [facility] Dr. Monroy consulted no further cardiac interventions recommended during admission (3) Acute renal failure: likely from NSAIDs crea improved from 1.6 to 1.4 given IV NSS advised to stop NSAIDS, increase oral fluids repeat BMP 08/15/18, ff up with PCP 08/16/18 (4) Headache: History of Migraine Neurology consulted, recommended Solumedrol IV, Mg, etc. headache resolved given Prednisone taper recommend to continue Topamax outpatient Neuro ff up consider Botox treatment (5) COPD (chronic obstructive pulmonary disease): not in exacerbation (6) GERD (gastroesophageal reflux disease): Protonix IV ordered daily as patient was on high dose steroids (7) TIA (transient ischemic attack): on ASA (8) Prediabetes: a1c 6.1 monitor and further management as outpatient (2) Abnormal CT of the abdomen: full report as noted above A 1.5 cm pleural-based nodular density is seen in the left lower lobe on image # 8. A 1.5 cm right adrenal nodule meets CT criteria for a fat-containing adenoma. -- ff up and further work up as outpatient Disposition d/c home ff up with PCP as noted in discharge instructions Total Time Total Time Spent Total Time Spent (In Minutes): 45 mins Discharge Plan Discharge Items Patient Disposition: Home - Self-Care Reason For Visit: CHEST DISCOMFORT Discharge Diagnosis: NEAR SYNCOPE, KIDNEY INJURY Condition: Good Discharge Goals: Diagnostic testing and Therapeutic intervention Activity: As commented below Activity Comment: NO HEAVY EXERTION; DO NOT RETURN TO WORK UNTIL EVALUATED BY YOUR DOCTOR Lifting: Wait until after follow-up appointment Exercise/Sports: Wait until after follow-up appointment Driving/Machine Use Comment: NO DRIVING UNTIL RE-EVALUATED BY [facility] CARE PHYSICIAN Non-emergency contact: Primary Care Provider Call non-emergency contact if: you have any medication questions, your symptoms worsen, your pain is not controlled, your pain is worsening, your pain is unusual for you and your pain is concerning for you Diet: Heart Healthy and See below Diet Comment: LOW SUGAR, LOW CARBOHYDRAGTE Addtl Provider Instructions: FOLLOW UP WITH DR. ARREOLA ON Sunday08/16/18 AT 7:25AM. TAKE PROTONIX AT LEAST MINUTES BEFORE MEALS. TAKE PREDNISONE WITH FULL STOMACH. DRINK PLENTY OF FLUIDS. DO NOT TAKE MEDICATIONS UNDER THE CLASS OF NSAIDS- IBUPROFEN, NAPROXEN, ETC. DO NOT TAKE ANY NEW MEDICATIONS WITHOUT CONSULTING WITH YOUR PRIMARY CARE PHYSICIAN. CALL PRIMARY CARE PHYSICIAN OR RETURN TO ER IMMEDIATELY IF WITH WORSENING OF SYMPTOMS. Prescriptions: New pantoprazole 40 mg Tablet,Delayed Release (Dr/Ec) 40 mg PO DAILY 7 Days Qty: 7 RF: 0 prednisone 20 mg tablet 20 mg PO UD Qty: 12 RF: 0 Continue rizatriptan 10 mg tablet,disintegrating 10 mg PO UD PRN (Reason: Migraine Headache) RF: 0 cholecalciferol (vitamin D3) [Vitamin D3] 1,000 unit Capsule 1,000 unit PO DAILY RF: 0 topiramate 50 mg tablet 50 mg PO BID RF: 0 fenofibrate 160 mg tablet 160 mg PO DAILY RF: 0 apremilast 30 mg tablet 30 mg PO BID RF: 0 Stand-Alone Forms: [facility], [facility], Work/School Release (Inpt) Discharge Orders: Discharge Order (Routine); Ordered 08/13/18 Ordered By: Wicho Higgins Admission Data Admit Date/Time: 08/12/18 07:07 Attending Provider: Wicho Higgins Admit Provider: Nando Gordon Primary Care Provider: Sarthak Arreola Other Providers: Nando Gordon ; Brandyn Monique ; Jeff Ingram ; Torres Madden ; Pierce Burton ; Arturo Chance Jr ; Alex Longoria ; Yamileth Thibodeaux ; Miriam Giles ; Lakhwinder Ghotra ; Lakhwinder Monroy ; Anil Lara ; Shadi Cornell ; Babak Trammell ; Aliza Abel ; Chanelle Rodriguez ; Fanny Matias ; Babak Lee ; Fanny Herrera ; Chika Castaneda ; Giorgi Lomeli ; Yareli Salomon Service: Telemetry Medical Other Interventions: Discharge Summary Assessment (RN) Last Done: 08/13/18 14:29 DC Date/Time DO NOT enter until pt leaves facility: 08/13/18 15:09
--- NOTE | 2018-08-13 14:31 | Neurology Progress Note ---
Date of Service August 13, 2018 A/P; A 53 year old woman admitted with chronic migraine. Headache improved with migraine cocktail. Plan to discharge to home with pednisone taper. - Prednisone 60 mg x2 days, 40 mg x2 days, then 20 mg x2 days then stop - Continue Topamax for headache prophylaxis - Follow up with Neuro as outpatient. May need to discus botox. Assessment & Plan (1) Headache: 1. history of migraine headache 2. likely over use headache - increased # motrin to 1 bottles every 2 days 3. MRI with no acute findings 4. may need sleep study as out patient 5. smoking cessation recommended return neurology 4-6 weeks after discharge Fanny Matias PAC schedule Subjective Patient reporting headache improved and wishes to go home. States she has had psioriasis issues with prednisone before. Physical Exam 2 Vital Signs (Past 24 Hours): Last Vital Signs Temp 36.7 C 08/13/18 11:34 Pulse 82 08/13/18 11:34 Resp 18 08/13/18 11:34 BP 129/74 08/13/18 11:34 Pulse Ox 92 08/13/18 11:34 Physical Exam: hysical Exam: Constitutional: appearance over-nourished Ears, Nose, Mouth and Throat: mucous membranes moist, no injection and skin normal, eyes normal Cardiovascular: normal S-1 and S-2 and regular rate and rhythm Respiratory: course breath sounds Musculoskeletal: no peripheral edema and good distal pulses Skin: no stigmata of neurocutaneous disease noted and normal and intact Eyes: extraocular muscles intact (EOMI) and pupils equal, round and reactive to light (PERRL) NEUROLOGIC EXAMINATION: Mental status: Alert and interactive Oriented to full date and location Oriented to person Speech fluent with no evidence of aphasia Cranial Nerves smile eye brow raise symmetric Reflexes: Deep tendon reflexes were symmetrical and graded 2/5. Plantar responses were flexor. Sensory: intact to light and cool touch Coordination: Romberg absent Gait/Stance: Posture normal. walking around room Motor: Negative for pronator drift of out stretched arms with eyes closed. Strength: biceps triceps hand spear fisher bilaterally 5/5, hip flex patellar, plantar flex ext 5/ 5 bilaterally _ (1) Headache Headache chronicity pattern: Headache type: Intractability:
--- NOTE | 2018-08-13 14:43 | Hospitalist Progress Note ---
Date of Service August 13, 2018 Assessment & Plan (1) Near syncope: possibly from dehydration, NSAID overuse r/o Arrhythmia monitored in tele, no arrythmias noted Cardiology consulted Dr. Monroy if there is continued concern regarding arrhythmia a 30-day outpatient event monitor could be performed. CVA ruled out MRI brain: negative for acute process Orthostasis BP stable dizziness resolved, ambulating with no problems (2) Chest pain: echo EF 65-70% no significant valvular disease serial troponins negative d dimer negative [facility] Dr. Monroy consulted no further cardiac interventions recommended during admission (3) Acute renal failure: likely from NSAIDs crea improved from 1.6 to 1.4 given IV NSS advised to stop NSAIDS, increase oral fluids repeat BMP 08/15/18, ff up with PCP 08/16/18 (4) Headache: History of Migraine Neurology consulted, recommended Solumedrol IV, Mg, etc. headache resolved given Prednisone taper recommend to continue Topamax outpatient Neuro ff up consider Botox treatment (5) COPD (chronic obstructive pulmonary disease): not in exacerbation (6) GERD (gastroesophageal reflux disease): Protonix IV ordered daily as patient was on high dose steroids (7) TIA (transient ischemic attack): on ASA (8) Prediabetes: a1c 6.1 monitor and further management as outpatient Disposition d/c home ff up with PCP as noted in discharge instructions Subjective ff up for dizziness, headache, chest sensation resting in bed, comfortable in good spirits states she feels much better overall headache is only 1-2/10 no other neuro symptoms dizziness resolved, ambulating with no problems chest pain resolved no other symptoms states she is ready and patient as adamant to be discharged today Physical Exam 2 Vital Signs (Past 24 Hours): Last Vital Signs Temp 36.7 C 08/13/18 14:29 Pulse 84 08/13/18 14:29 Resp 18 08/13/18 14:29 BP 129/74 08/13/18 14:29 Pulse Ox 92 08/13/18 14:29 Physical Exam: General- oriented x 3, not in distress, speaks in sentences with no effort or accessory muscle use Eyes- anicteric Neck- no JVD Lungs- clear breath sounds bilaterally no crackles, no wheezing Heart- normal rate, regular rhythm; no murmurs Abdomen- normal bowel sounds, nondistended, soft, nontender Extremities- no pretibial edema, no calf tenderness Neuro- alert, oriented x 3; no gross focal neurologic deficits Skin- warm & dry Results & Data Laboratory Results all noted and reviewed
[2018-08-13] MEDS ORDERED: INSULIN ASPART 100 UNITS/ML 3 ML PEN SC SCH (16:30)
[2018-08-14 05:55] LABS: Estimated Average Glucose 128 mg/dl
[2018-08-14] MEDS ORDERED: PANTOprazole 40 MG TAB PO SCH (09:00)
== END 2018-08-13 15:09 | disposition home or self-care (01) ==
LOC: ED 04:12 → 2N 04:12